=== PATIENT | female | born 1935 | race Caucasian/White ===

== ENCOUNTER 2017-10-29 23:02 | Emergency (ER) | payer MEDICARE, OTHER ==
[2017-10-29 23:34] VITALS: BP 151/102
[2017-10-30] MEDS ORDERED: Ondansetron 4 MG/2 ML SDV IVPUSH ONE (00:10)
[2017-10-30] MEDS ORDERED: Sodium Chloride 0.9% 10 ML Syringe FLUSH PRN (00:10)
[2017-10-30] MEDS ORDERED: Sodium Chloride 0.9% 1,000 ML IV SCH (00:15)
--- NOTE | 2017-10-30 02:36 | EDM.PDOC ---
ED HPI GENERAL MEDICAL PROBLEM - General Chief Complaint: Gastrointestinal Problem Stated Complaint: DIZZY SICK TO STOMACH Time Seen by Provider: 10/30/17 00:03 Source of Information: Reports: Patient History Limitations: Reports: No Limitations - History of Present Illness INITIAL COMMENTS - FREE TEXT/NARRATIVE: The patient was getting ready for bed and she developed dizziness where the room was spinning, nausea and vomiting. She took some nitro but it did not help. She feels uncomfortable but she denies fever, chills, cough, congestion, ear pain, decreased hearing, tinnitus, chest pain, shortness of breath, or abdominal pain. She has had vertigo before and she is wondering if that may be the case. She also has had some edema in her legs. She was told to stop her lasix but no she has edema in her legs. Onset: Sudden Duration: Minutes: Severity: Moderate Improves with: Reports: None Worsens with: Reports: None Associated Symptoms: Reports: Nausea/Vomiting. Denies: Confusion, Chest Pain, Cough, Fever/Chills, Headaches, Shortness of Breath Abdomen Pain Score (Numeric/FACES): 5 - Related Data Allergies Allergy/AdvReac Type Severity Reaction Status Date / Time No Known Allergies Allergy Verified 10/29/17 23:34 Home Meds: Home Meds Aspirin [Ecotrin] 81 mg PO DAILY 10/16/15 [History] Cyanocobalamin (Vitamin B12) [Vitamin B12] 1,000 mg PO DAILY 10/16/15 [History] Lisinopril [Zestril] 5 mg PO DAILY 10/16/15 [History] Metoprolol Tartrate 50 mg PO DAILY 10/16/15 [History] atorvaSTATin [Lipitor] 20 mg PO DAILY 10/16/15 [History] Cholecalciferol (Vitamin D3) [Vitamin D] 1,000 unit PO DAILY 01/28/16 [History] Rivaroxaban [Xarelto] 15 mg PO DAILY 11/04/16 [History] Furosemide [Lasix] 20 mg PO DAILY #30 tablet 10/30/17 [Rx] Meclizine [Antivert] 25 mg PO Q6H PRN #30 tablet 10/30/17 [Rx] Past Medical History HEENT History: Reports: Cataract Cardiovascular History: Reports: Hypertension, [place], Other (See Below) Other Cardiovascular History: plaque removal from carotid arteries Respiratory History: Reports: SOB Gastrointestinal History: Reports: GERD [employer] History: Reports: Musculoskeletal History: Reports: Arthritis Neurological History: Reports: Headaches, Chronic, Vertigo 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, Leukemia Dermatologic History: Reports: Eczema - Infectious Disease History Infectious Disease History: Reports: Shingles - Past Surgical History HEENT Surgical History: Reports: Tonsillectomy GI Surgical History: Reports: Appendectomy, Cholecystectomy, Colonoscopy, EGD Female Surgical History: Reports: Breast Biopsy, Hysterectomy, Mastectomy Social & Family History - Family History Oncologic: Reports: Breast - Tobacco Use Smoking Status *Q: Former Smoker Years of Tobacco use: 50 Packs/Tins Daily: 1 Used Tobacco, but Quit: Yes Month Tobacco Last Used: 2009 - Caffeine Use Caffeine Use: Reports: None - Recreational Drug Use Recreational Drug Use: No ED ROS GENERAL - Review of Systems Review Of Systems: See Below Constitutional: Reports: No Symptoms HEENT: Reports: No Symptoms Respiratory: Reports: No Symptoms Cardiovascular: Reports: No Symptoms Endocrine: Reports: No Symptoms GI/Abdominal: Reports: No Symptoms : Reports: No Symptoms Musculoskeletal: Reports: No Symptoms Skin: Reports: No Symptoms Neurological: Reports: Dizziness ED EXAM, GI/ABD - Physical Exam Exam: See Below Exam Limited By: No Limitations General Appearance: Alert, No Apparent Distress Eyes: Left: Nystagmus, Bilateral: EOMI Ears: Normal External Exam Nose: Normal Inspection Head: Atraumatic, Normocephalic Neck: Normal Inspection Respiratory/Chest: No Respiratory Distress, Lungs Clear, Normal Breath Sounds Cardiovascular: Regular Rate, Rhythm, No Edema, No Murmur GI/Abdominal Exam: Soft, Non-Tender, No Organomegaly, No Mass Back Exam: Normal Inspection Extremities: Normal Inspection EKG INTERPRETATION EKG Date: 10/30/17 Time: 00:28 Rhythm: Other (sinus tachycardia) Rate (Beats/Min): 104 [place]: Normal P-Wave: Present QRS: Normal ST-T: Normal QT: Prolonged Course - Vital Signs Last Recorded V/S: Last Vital Signs Temp 97.9 F 10/29/17 23:29 Pulse 104 H 10/29/17 23:29 Resp 18 10/29/17 23:29 BP 151/102 H 10/29/17 23:29 Pulse Ox 99 10/29/17 23:29 - Orders/Labs/Meds Orders: Active Orders 24 hr Category Date Time Status Cardiac Monitoring [RC] . DIRECTED Care 10/30/17 00:10 Active EKG Documentation Completion [RC] STAT Care 10/30/17 00:11 Active Peripheral IV Care [RC] . DIRECTED Care 10/30/17 00:11 Active Chest 1V Frontal [CR] Stat Exams 10/30/17 00:11 Taken Head wo Cont [CT] Stat Exams 10/30/17 00:27 Taken Sodium Chloride 0.9% [Normal Saline] 1,000 ml Med 10/30/17 00:15 Active IV ASDIRECTED Sodium Chloride 0.9% [Saline Flush] Med 10/30/17 00:10 Active 10 ml FLUSH ASDIRECTED PRN ED Antiemetic Medication Reflex [OM.PC] Stat Oth 10/30/17 00:10 Ordered Peripheral IV Insertion Adult [OM.PC] Stat Oth 10/30/17 00:10 Ordered Medication Orders Sodium Chloride (Normal Saline) 1,000 mls @ 125 mls/hr IV ASDIRECTED KATHERINE Last Admin: 10/30/17 00:43 Dose: 125 mls/hr Sodium Chloride (Saline Flush) 10 ml FLUSH ASDIRECTED PRN PRN Reason: Keep Vein Open Last Admin: 10/30/17 00:46 Dose: 10 ml Labs: Laboratory Tests 10/30/17 10/30/17 Range/Units 00:38 00:38 WBC 31.60 H (3.98-10.04) K/mm3 RBC 4.21 (3.98-5.22) M/mm3 Hgb 12.8 (11.2-15.7) gm/L Hct 40.1 (34.1-44.9) % MCV 95.2 H (79.4-94.8) fl MCH 30.4 (25.6-32.2) pg MCHC 31.9 L (32.2-35.5) g/dl RDW Std Deviation 47.9 H (36.4-46.3) fL Plt Count 178 L (182-369) K/mm3 MPV 9.9 (9.4-12.3) fl Neut % (Auto) 12.2 L (34.0-71.1) % Lymph % (Auto) 82.4 H (19.3-51.7) % [facility] % (Auto) 4.7 (4.7-12.5) % Eos % (Auto) 0.3 L (0.7-5.8) Baso % (Auto) 0.2 (0.1-1.2) % Neut # (Auto) 3.88 (1.56-6.13) K/mm3 Lymph # (Auto) 26.04 H (1.18-3.74) K/mm3 [facility] # (Auto) 1.47 H (0.24-0.36) K/mm3 Eos # (Auto) 0.09 (0.04-0.36) K/mm3 Baso # (Auto) 0.07 (0.01-0.08) K/mm3 Manual Slide Review Abnormal smear Sodium 139 (136-145) mEq/L Potassium 4.0 (3.5-5.1) mEq/L Chloride 101 (98-107) mEq/L Carbon Dioxide 28 (21-32) mEq/L Anion Gap 14.0 (5-15) BUN 14 (7-18) mg/dL Creatinine 0.8 (0.55-1.02) mg/dL Est Cr Clr Drug Dosing 45.02 mL/min Estimated GFR (MDRD) > 60 (>60) mL/min BUN/Creatinine Ratio 17.5 (14-18) Glucose 99 (83-115) mg/dL Calcium 9.1 (8.5-10.1) mg/dL Total Bilirubin 1.6 H (0.2-1.0) mg/dL AST 32 (15-37) U/L ALT 32 (14-59) U/L Alkaline Phosphatase 94 (46-116) U/L Troponin I < 0.017 (0.00-0.056) ng/mL NT-Pro-B Natriuret Pep 3900 H (0-450) pg/mL Total Protein 6.9 (6.4-8.2) g/dl Albumin 4.1 (3.4-5.0) g/dl Globulin 2.8 gm/dL Albumin/Globulin Ratio 1.5 (1-2) Meds: Medications Generic Name Dose Route Start Last Admin Trade Name Freq PRN Reason Stop Dose Admin Sodium Chloride 1,000 mls @ 125 mls/hr 10/30/17 00:15 10/30/17 00:43 Normal Saline IV 125 mls/hr ASDIRECTED KATHERINE Administration Sodium Chloride 10 ml 10/30/17 00:10 10/30/17 00:46 Saline Flush FLUSH 10 ml ASDIRECTED PRN Administration Keep Vein Open Discontinued Medications Generic Name Dose Route Start Last Admin Trade Name Dann PRN Reason Stop Dose Admin Meclizine HCl 25 mg 10/30/17 00:11 10/30/17 00:45 Antivert PO 10/30/17 00:12 25 mg ONETIME ONE Administration Ondansetron HCl 4 mg 10/30/17 00:10 10/30/17 00:45 Zofran IVPUSH 10/30/17 00:11 4 mg ONETIME ONE Administration - Re-Assessments/Exams Free Text/Narrative Re-Assessment/Exam: 10/30/17 02:36 I ordered an IV NS at 125mL/hr, antivert, EKG, labs, and CXR. Her EKG shows a sinus tachycardia. Her CXR shows COPD changes with some congestion. Her WBC was elevated at 31.6. She has leukemia. Her CMP looks good. Her troponin was negative. Her BNP was 3900. I feel she has vertigo and she has CHF. I will get her a prescription for antivert and I will have her take her lasix again. Departure - Departure Time of Disposition: 02:40 Disposition: Home, Self-Care 01 Condition: Good Clinical Impression: CHF (congestive heart failure) Qualifiers: Congestive heart failure type: unspecified congestive heart failure type Congestive heart failure chronicity: acute Qualified Code(s): I50.9 - Heart failure, unspecified - Discharge Information Prescriptions: Furosemide [Lasix] 20 mg PO DAILY #30 tablet Meclizine [Antivert] 25 mg PO Q6H PRN #30 tablet PRN Reason: Dizziness Referrals: Sarah Yap MD [Primary Care Provider] - 1 Week Additional Instructions: Continue to take the rest of your prescription. Take the antivert 1 pill every 6 hours as needed for dizziness. Take the lasix daily. Follow up with your doctor in 1 week. Please return if you are worse. - My Orders Last 24 Hours: My Active Orders 10/30/17 00:10 Cardiac Monitoring [RC] . DIRECTED Sodium Chloride 0.9% [Saline Flush] 10 ml FLUSH ASDIRECTED PRN ED Antiemetic Medication Reflex [OM.PC] Stat Peripheral IV Insertion Adult [OM.PC] Stat 10/30/17 00:11 EKG Documentation Completion [RC] STAT Peripheral IV Care [RC] . DIRECTED Chest 1V Frontal [CR] Stat 10/30/17 00:15 Sodium Chloride 0.9% [Normal Saline] 1,000 ml IV ASDIRECTED 10/30/17 00:27 Head wo Cont [CT] Stat - Assessment/Plan Last 24 Hours: My Active Orders 10/30/17 00:10 Cardiac Monitoring [RC] . DIRECTED Sodium Chloride 0.9% [Saline Flush] 10 ml FLUSH ASDIRECTED PRN ED Antiemetic Medication Reflex [OM.PC] Stat Peripheral IV Insertion Adult [OM.PC] Stat 10/30/17 00:11 EKG Documentation Completion [RC] STAT Peripheral IV Care [RC] . DIRECTED Chest 1V Frontal [CR] Stat 10/30/17 00:15 Sodium Chloride 0.9% [Normal Saline] 1,000 ml IV ASDIRECTED 10/30/17 00:27 Head wo Cont [CT] Stat
--- NOTE | 2017-10-30 08:24 | CT ---
Head CT Technique: Multiple axial sections through the brain were obtained. Intravenous contrast was not utilized. Comparison: Prior head CT study of 01/28/16 is available. Findings: Ventricles along with basal cisterns and sulci over the convexities are mildly prominent. Diminished density noted within the periventricular white matter and subcortical white matter as well as basal ganglia compatible with small vessel ischemic demyelination change. Several old appearing lacunar infarcts are noted within the basal ganglia. No other abnormal parenchymal densities are seen. No evidence of intracranial hemorrhage. No midline shift or mass effect is appreciated. Atherosclerotic calcification is seen within the carotid siphon. No acute calvarial abnormality is appreciated. Visualized sinuses are clear. Air is identified within portions of the cavernous sinuses which is likely incidental if patient has no history of trauma. Impression: 1. Senescent change as described above. Other incidental findings. 2. Nothing acute is appreciated on noncontrast head CT exam. Diagnostic code #2 I agree with preliminary report issued by [employer] ([facility] report finalized on 10/30/17, 2:45 AM Central Time)
--- NOTE | 2017-10-30 08:24 | CR ---
Chest: Portable view of the chest was obtained. Comparison: Prior chest x-ray of 11/04/16. Heart is enlarged. Slight atelectasis is noted within the right lung base. Lungs appear hyperinflated compatible with emphysematous change. Minimal right-sided pleural effusion is seen. Bony structures are osteopenic. Incidental scoliosis is noted within the spine. Impression: 1. Mild cardiomegaly. Minimal right-sided pleural effusion. 2. Mild right basilar atelectasis and other incidental findings. Diagnostic code #2
== END 2017-10-30 02:51 | disposition home or self-care (01) ==
LOC: JD.ED 23:02
DX: I11.0 Hypertensive heart disease with heart failure (principal); I50.9 Heart failure, unspecified; Z79.82 Long term (current) use of aspirin; Z79.899 Other long term (current) drug therapy; Z87.891 Personal history of nicotine dependence
CPT/HCPCS: 36415; 70450; 71010; 80053; 83880; 84484; 85025; 93005; 96361; 96374; 99285; A9270; J2405; J7040; J7050; 93010; 99284

== ENCOUNTER 2018-01-29 13:16 | Observation (INO) | payer MEDICARE, OTHER ==
[2018-01-29] MEDS ORDERED: Sodium Chloride 0.9% 10 ML Syringe FLUSH PRN ×2 (13:44→17:52)
--- NOTE | 2018-01-29 14:12 | CT ---
Head CT Technique: Multiple axial sections through the brain were obtained. Intravenous contrast was not utilized. Comparison: Prior noncontrast head CT study of 10/30/17. Findings: Ventricles along with basal cisterns and sulci over convexities are mildly prominent. Diminished density is noted within the periventricular white matter and within portions of the basal ganglia compatible with small vessel ischemic demyelination change. Several old lacunar infarcts are also noted within the basal ganglia. Old infarct is noted within the posterior right frontal region. No other abnormal parenchymal densities are seen. No evidence of intracranial hemorrhage. No midline shift or mass effect is seen. Bone window settings were reviewed which shows no acute calvarial abnormality. Visualized sinuses are clear. Impression: 1. Senescent change as noted above appearing fairly stable from prior head CT exam. 2. Nothing acute is appreciated on noncontrast head CT study. Diagnostic code #2
--- NOTE | 2018-01-29 14:27 | EDM.PDOC ---
ED HPI GENERAL MEDICAL PROBLEM - General Chief Complaint: Upper Extremity Injury/Pain Stated Complaint: NO FEELING IN R ARM Time Seen by Provider: 01/29/18 13:33 Source of Information: Reports: Patient History Limitations: Reports: No Limitations - History of Present Illness INITIAL COMMENTS - FREE TEXT/NARRATIVE: The patient presents with right arm numbness and weakness. This all started about 2 hours ago. She was at [facility] when this started. She said it did happen a couple days ago but it went away. This past week she had a cardiac cath in [place] in [place]. They went through her right wrist. She has ecchymosis to her arm. She has no pain and she has no edema. She says she has slight weakness to her right arm. She has no trouble walking or talking. She has no facial droop. She denies fever, chills, headache, chest pain, shortness of breath, abdominal pain, nausea or vomiting. Last time known well was 11:30 this morning. 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 - Related Data Allergies Allergy/AdvReac Type Severity Reaction Status Date / Time No Known Allergies Allergy Verified 01/29/18 13:30 Home Meds: Home Meds Aspirin [Ecotrin] 81 mg PO DAILY 10/16/15 [History] Cyanocobalamin (Vitamin B12) [Vitamin B12] 1,000 mg PO DAILY 10/16/15 [History] Lisinopril [Zestril] 2.5 mg PO DAILY 10/16/15 [History] Metoprolol Tartrate 75 mg PO DAILY 10/16/15 [History] atorvaSTATin [Lipitor] 20 mg PO DAILY 10/16/15 [History] Cholecalciferol (Vitamin D3) [Vitamin D] 1,000 unit PO DAILY 01/28/16 [History] Rivaroxaban [Xarelto] 15 mg PO DAILY 11/04/16 [History] Furosemide [Lasix] 20 mg PO DAILY #30 tablet 10/30/17 [Rx] Meclizine [Antivert] 25 mg PO Q6H PRN #30 tablet 10/30/17 [Rx] Fluticasone/Salmeterol [Advair 100-50] 1 puff INH ASDIRECTED PRN 01/29/18 [ History] Gabapentin [Neurontin] 100 mg PO BID 01/29/18 [History] Isosorbide Mononitrate [Imdur] 30 mg PO DAILY 01/29/18 [History] Nitroglycerin [Nitrostat] 0.4 mg SL ASDIRECTED PRN 01/29/18 [History] Past Medical History HEENT History: Reports: Cataract Cardiovascular History: Reports: Hypertension, [place], St[place], Other (See Below) Other Cardiovascular History: plaque removal from carotid arteries Respiratory History: Reports: SOB Gastrointestinal History: Reports: GERD [employer]IST History: Reports: Musculoskeletal History: Reports: Arthritis Neurological History: Reports: Headaches, Chronic, Vertigo 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, Leukemia Dermatologic History: Reports: Eczema - Infectious Disease History Infectious Disease History: Reports: Shingles - Past Surgical History HEENT Surgical History: Reports: Tonsillectomy GI Surgical History: Reports: Appendectomy, Cholecystectomy, Colonoscopy, EGD Female Surgical History: Reports: Breast Biopsy, Hysterectomy, Mastectomy Social & Family History - Family History Family Medical History: Noncontributory Oncologic: Reports: Breast - Tobacco Use Smoking Status *Q: Former Smoker Years of Tobacco use: 50 Packs/Tins Daily: 1 Used Tobacco, but Quit: No Month/Year Tobacco Last Used: 2009 - Caffeine Use Caffeine Use: Reports: None - Recreational Drug Use Recreational Drug Use: No Review of Systems - Review of Systems Review Of Systems: See Below Constitutional: Reports: No Symptoms Ears: Reports: No Symptoms Nose: Reports: No Symptoms Mouth/Throat: Reports: No Symptoms Respiratory: Reports: No Symptoms Cardiovascular: Reports: No Symptoms GI/Abdominal: Reports: No Symptoms Genitourinary: Reports: No Symptoms Musculoskeletal: Reports: No Symptoms Skin: Reports: No Symptoms Neurological: Reports: Numbness (right arm), Weakness (Right arm) ED EXAM, GENERAL - Physical Exam Exam: See Below Exam Limited By: No Limitations General Appearance: Alert, No Apparent Distress Ears: Normal External Exam Nose: Normal Inspection Head: Atraumatic, Normocephalic Neck: Normal Inspection Respiratory/Chest: No Respiratory Distress, Lungs Clear, Normal Breath Sounds Cardiovascular: Regular Rate, Rhythm, No Edema, No Murmur GI/Abdominal: Soft, Non-Tender, No Organomegaly, No Mass Back Exam: Normal Inspection Extremities: Normal Inspection Neurological: Alert, Other (Mild weakness to right arm. Gross numbness to right arm) EKG INTERPRETATION EKG Date: 01/29/18 Time: 13:29 Rhythm: NSR Rate (Beats/Min): 96 [place]on: Normal P-Wave: Present QRS: RBBB ST-T: Normal QT: Normal EKG Interpretation Comments: Q waves in the inferior leads Course - Vital Signs Last Recorded V/S: Last Vital Signs Temp 96.8 F 01/29/18 13:18 Pulse 97 01/29/18 13:18 Resp 20 01/29/18 13:18 BP 128/85 01/29/18 13:18 Pulse Ox 100 01/29/18 13:18 - Orders/Labs/Meds Orders: Active Orders 24 hr Category Date Time Status Cardiac Monitoring [RC] . DIRECTED Care 01/29/18 13:44 Active EKG Documentation Completion [RC] STAT Care 01/29/18 13:45 Active Peripheral IV Care [RC] . DIRECTED Care 01/29/18 13:45 Active Ang Head [CT] Stat Exams 01/29/18 17:26 Ordered Ang Neck [CT] Stat Exams 01/29/18 17:27 Ordered Sodium Chloride 0.9% [Normal Saline] 100 ml Med 01/29/18 18:00 Active IV ASDIRECTED Sodium Chloride 0.9% [Saline Flush] Med 01/29/18 13:44 Active 10 ml FLUSH ASDIRECTED PRN Sodium Chloride 0.9% [Saline Flush] Med 01/29/18 17:52 Active 10 ml FLUSH ONETIME PRN Peripheral IV Insertion Adult [OM.PC] Stat Oth 01/29/18 13:44 Ordered Medication Orders Sodium Chloride (Normal Saline) 100 mls @ 65 mls/hr IV ASDIRECTED KATHERINE Sodium Chloride (Saline Flush) 10 ml FLUSH ASDIRECTED PRN PRN Reason: Keep Vein Open Last Admin: 01/29/18 14:11 Dose: 10 ml Sodium Chloride (Saline Flush) 10 ml FLUSH ONETIME PRN PRN Reason: IV FLUSH Labs: Laboratory Tests 01/29/18 01/29/18 01/29/18 Range/Units 14:10 14:10 14:10 WBC 30.69 H (3.98-10.04) K/mm3 RBC 3.08 L (3.98-5.22) M/mm3 Hgb 8.6 L (11.2-15.7) gm/L Hct 28.2 L (34.1-44.9) % MCV 91.6 (79.4-94.8) fl MCH 27.9 (25.6-32.2) pg MCHC 30.5 L (32.2-35.5) g/dl RDW Std Deviation 51.2 H (36.4-46.3) fL Plt Count 268 (182-369) K/mm3 MPV 10.0 (9.4-12.3) fl Neut % (Auto) 12.2 L (34.0-71.1) % Lymph % (Auto) 81.4 H (19.3-51.7) % [place] % (Auto) 5.1 (4.7-12.5) % Eos % (Auto) 0.8 (0.7-5.8) Baso % (Auto) 0.3 (0.1-1.2) % Neut # (Auto) 3.75 (1.56-6.13) K/mm3 Lymph # (Auto) 24.97 H (1.18-3.74) K/mm3 [place] # (Auto) 1.56 H (0.24-0.36) K/mm3 Eos # (Auto) 0.26 (0.04-0.36) K/mm3 Baso # (Auto) 0.09 H (0.01-0.08) K/mm3 Manual Slide Review Abnormal smear PT 13.6 H (8.0-13.0) SECONDS INR 1.27 APTT 28 (22-36) SECONDS Sodium 139 (136-145) mEq/L Potassium 3.7 (3.5-5.1) mEq/L Chloride 101 (98-107) mEq/L Carbon Dioxide 28 (21-32) mEq/L Anion Gap 13.7 (5-15) BUN 25 H (7-18) mg/dL Creatinine 0.8 (0.55-1.02) mg/dL Est Cr Clr Drug Dosing 38.70 mL/min Estimated GFR (MDRD) > 60 (>60) mL/min BUN/Creatinine Ratio 31.3 H (14-18) Glucose 121 H (83-115) mg/dL Calcium 8.7 (8.5-10.1) mg/dL Total Bilirubin 0.7 (0.2-1.0) mg/dL AST 31 (15-37) U/L ALT 34 (14-59) U/L Alkaline Phosphatase 110 (46-116) U/L Troponin I 0.047 (0.00-0.056) ng/mL Total Protein 6.7 (6.4-8.2) g/dl Albumin 3.7 (3.4-5.0) g/dl Globulin 3.0 gm/dL Albumin/Globulin Ratio 1.2 (1-2) Meds: Medications Generic Name Dose Route Start Last Admin Trade Name Freq PRN Reason Stop Dose Admin Sodium Chloride 100 mls @ 65 mls/hr 01/29/18 18:00 Normal Saline IV ASDIRECTED KATHERINE Sodium Chloride 10 ml 01/29/18 13:44 01/29/18 14:11 Saline Flush FLUSH 10 ml ASDIRECTED PRN Administration Keep Vein Open Sodium Chloride 10 ml 01/29/18 17:52 Saline Flush FLUSH ONETIME PRN IV FLUSH Discontinued Medications Generic Name Dose Route Start Last Admin Trade Name Freq PRN Reason Stop Dose Admin Iopamidol 100 ml 01/29/18 17:52 [id number] (76%) IVPUSH 01/29/18 17:53 ONETIME ONE - Re-Assessments/Exams Free Text/Narrative Re-Assessment/Exam: 01/29/18 18:31 I ordered an IV saline lock, EKG, CT of her head and labs. 01/29/18 18:32 Her WBC is elevated at 30.69. Her Hgb is low. She has no real history of anemia. She does have a history of leukemia. Her platelets were normal. Her troponin was negative. Her CMP looks good. Her head CT shows senescent change appearing fairly stable from prior head CT exam. The patient's last time known well was 2 hours before arrival. She has totally resolved her symptoms. I talked to Dr Avila about the patient and she recommended an arterial US of her arm because of the cardiac cath. The US showed flow throughout the arterial system of the right upper extremity with no flow being seen on the diastolic phase indicating high resistance from poorly seen stenosis. No complete arterial obstruction is seen. 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 I talked with Dr Avila and she agreed to the observation admission. Departure - Departure Time of Disposition: 18:40 Disposition: Refer to Observation Condition: Fair Clinical Impression: TIA (transient ischemic attack) Qualifiers: Transient cerebral ischemia type: unspecified Qualified Code(s): G45.9 - Transient cerebral ischemic attack, unspecified Anemia Qualifiers: Anemia type: other cause Other causes of anemia: other cause, not classified Qualified Code(s): D64.89 - Other specified anemias - Discharge Information - My Orders Last 24 Hours: My Active Orders 01/29/18 13:44 Cardiac Monitoring [RC] . DIRECTED Sodium Chloride 0.9% [Saline Flush] 10 ml FLUSH ASDIRECTED PRN Peripheral IV Insertion Adult [OM.PC] Stat 01/29/18 13:45 EKG Documentation Completion [RC] STAT Peripheral IV Care [RC] . DIRECTED 01/29/18 17:26 Ang Head [CT] Stat 01/29/18 17:27 Ang Neck [CT] Stat 01/29/18 17:52 Sodium Chloride 0.9% [Saline Flush] 10 ml FLUSH ONETIME PRN 01/29/18 18:00 Sodium Chloride 0.9% [Normal Saline] 100 ml IV ASDIRECTED - Assessment/Plan Last 24 Hours: My Active Orders 01/29/18 13:44 Cardiac Monitoring [RC] . DIRECTED Sodium Chloride 0.9% [Saline Flush] 10 ml FLUSH ASDIRECTED PRN Peripheral IV Insertion Adult [OM.PC] Stat 01/29/18 13:45 EKG Documentation Completion [RC] STAT Peripheral IV Care [RC] . DIRECTED 01/29/18 17:26 Ang Head [CT] Stat 01/29/18 17:27 Ang Neck [CT] Stat 01/29/18 17:52 Sodium Chloride 0.9% [Saline Flush] 10 ml FLUSH ONETIME PRN 01/29/18 18:00 Sodium Chloride 0.9% [Normal Saline] 100 ml IV ASDIRECTED
--- NOTE | 2018-01-29 17:06 | US ---
Right upper extremity arterial ultrasound: Duplex and color flow imaging was obtained of the right common carotid artery, subclavian artery, axillary artery, brachial artery, radial and ulnar arteries. Findings: There is flow identified throughout the arterial system although flow shows increased resistance with no diastolic flow. Findings are felt compatible with areas of nonvisualized stenosis. No findings of of complete occlusion are seen. Impression: 1. Flow throughout the arterial system of the right upper extremity with no flow being seen on the diastolic phase indicating high resistance from poorly seen stenosis. No complete arterial obstruction is seen. Diagnostic code #3
[2018-01-29] MEDS ORDERED: Iopamidol 755 Mg/ML 100 ML Bottle IVPUSH ONE (17:52)
[2018-01-29] MEDS ORDERED: Sodium Chloride 0.9% 100 ML IV SCH (18:00)
--- NOTE | 2018-01-29 19:52 | PCM.HP ---
H&P History of Present Illness - General Date of Service: 01/29/18 Admit Problem/Dx: Admission Diagnosis/Problem Admission Diagnosis/Problem TIA, Transient ischemic attack Source of Information: Patient, Family, Provider History Limitations: Reports: No Limitations - History of Present Illness Initial Comments - Free Text/Narative: 82 year old female S/P right radial artery cardiac cath presented with a complaint of right arm numbness and weakness. The procedure occurred 1 week [employer]. The right forearm is bruised but not tender. Pulses are intact, there is no swelling or pallor. An arterial duplex could not exclude a poorly seen stenosis. Thus a complication post RA catheter can not be excluded. The patient has a history of PVD involving the carotid arteries. She reports CAD, however PCI was not required during the most recent evaluation. An observation admission with telemetry for complete assessment for TIA/cardiac cath post radial artery access has been arranged. The CTA of head/neck is pending. The ED physician discussed the plan with the neurologist missile control pilot in [facility]. Onset of Symptoms: Reports: Gradual Symptom Onset Date: 01/29/18 Duration of Symptoms: Reports: Hour(s):, Getting Worse Location: Reports: Upper Extremity, Right Quality: Reports: Other (numbness) Severity: Mild Improves with: Reports: Medication Worsens with: Reports: None Associated Symptoms: Reports: Weakness - Related Data Allergies/Adverse Reactions: Allergies Allergy/AdvReac Type Severity Reaction Status Date / Time No Known Allergies Allergy Verified 01/29/18 19:31 Home Medications: Home Meds Aspirin [Ecotrin] 81 mg PO DAILY 10/16/15 [History] Cyanocobalamin (Vitamin B12) [Vitamin B12] 1,000 mcg PO DAILY 10/16/15 [History] Lisinopril [Zestril] 2.5 mg PO DAILY 10/16/15 [History] atorvaSTATin [Lipitor] 40 mg PO DAILY 10/16/15 [History] Cholecalciferol (Vitamin D3) [Vitamin D] 1,000 unit PO DAILY 01/28/16 [History] Rivaroxaban [Xarelto] 15 mg PO DAILY 11/04/16 [History] Furosemide [Lasix] 20 mg PO DAILY #30 tablet 10/30/17 [Rx] Fluticasone/Salmeterol [Advair 100-50] 1 puff INH ASDIRECTED PRN 01/29/18 [ History] Gabapentin [Neurontin] 100 mg PO TID 01/29/18 [History] Isosorbide Mononitrate [Imdur] 30 mg PO DAILY 01/29/18 [History] Nitroglycerin [Nitrostat] 0.4 mg SL ASDIRECTED PRN 01/29/18 [History] Clopidogrel [Plavix] 1 tab PO DAILY 01/30/18 [History] Metoprolol Succinate 75 mg PO DAILY 01/30/18 [History] Past Medical History HEENT History: Reports: Cataract Cardiovascular History: Reports: Hypertension, [place], Stents, Other (See Below) Other Cardiovascular History: plaque removal from carotid arteries Respiratory History: Reports: SOB Gastrointestinal History: Reports: GERD 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: Musculoskeletal History: Reports: Arthritis Neurological History: Reports: Headaches, Chronic, Vertigo 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, Leukemia Dermatologic History: Reports: Eczema - Infectious Disease History Infectious Disease History: Reports: Shingles - Past Surgical History HEENT Surgical History: Reports: Tonsillectomy GI Surgical History: Reports: Appendectomy, Cholecystectomy, Colonoscopy, EGD Female Surgical History: Reports: Breast Biopsy, Hysterectomy, Mastectomy Social & Family History - Family History Family Medical History: Noncontributory Oncologic: Reports: Breast - Tobacco Use Smoking Status *Q: Former Smoker Years of Tobacco use: 50 Packs/Tins Daily: 1 Used Tobacco, but Quit: No Month/Year Tobacco Last Used: 2009 - Caffeine Use Caffeine Use: Reports: None - Recreational Drug Use Recreational Drug Use: No H&P Review of Systems - Review of Systems: Review Of Systems: See Below General: Reports: No Symptoms HEENT: Reports: No Symptoms Pulmonary: Reports: No Symptoms Cardiovascular: Reports: No Symptoms Gastrointestinal: Reports: No Symptoms Genitourinary: Reports: No Symptoms Musculoskeletal: Reports: Arm Pain (right), Hand Pain (right) Skin: Reports: Bruising Psychiatric: Reports: No Symptoms Neurological: Reports: No Symptoms Hematologic/Lymphatic: Reports: No Symptoms Immunologic: Reports: No Symptoms Exam - Exam Exam: See Below - Vital Signs Vital Signs: Last Vital Signs Temp 36.0 C 01/29/18 13:18 Pulse 97 01/29/18 13:18 Resp 20 01/29/18 13:18 BP 128/85 01/29/18 13:18 Pulse Ox 100 01/29/18 13:18 Weight: 45.178 kg - Exam Quality Assessment: Supplemental Oxygen, DVT Prophylaxis General: Alert, Oriented, Cooperative HEENT: Conjunctiva Clear, Nares Patent, Normal Nasal Septum, Pupils Equal, Pupils Reactive, PERRLA Neck: Trachea Midline Lungs: Normal Respiratory Effort Cardiovascular: Regular Rate, Irregular Rhythm GI/Abdominal Exam: Normal Bowel Sounds, Soft, Non-Tender, No Organomegaly, No Distention (Female) Exam: Deferred Rectal (Female) Exam: Deferred Back Exam: CVA Tenderness (R) Extremities: Normal Inspection, Normal Range of Motion, Non-Tender Skin: Warm, Dry, Ecchymosis Neurological: Cranial Nerves Intact Neuro Extensive - Mental Status: Alert, Oriented x3, Normal Mood/Affect, Normal Cognition, Disorientation to Time Neuro Extensive - Motor, Sensory, Reflexes: CN II-XII Intact Psychiatric: Alert, Normal Affect, Normal Mood - Patient Data Lab Results Last 24 hrs: Laboratory Results - last 24 hr 01/29/18 01/29/18 01/29/18 Range/Units 14:10 14:10 14:10 WBC 30.69 H (3.98-10.04) K/mm3 RBC 3.08 L (3.98-5.22) M/mm3 Hgb 8.6 L (11.2-15.7) gm/L Hct 28.2 L (34.1-44.9) % MCV 91.6 (79.4-94.8) fl MCH 27.9 (25.6-32.2) pg MCHC 30.5 L (32.2-35.5) g/dl RDW Std Deviation 51.2 H (36.4-46.3) fL Plt Count 268 (182-369) K/mm3 MPV 10.0 (9.4-12.3) fl Neut % (Auto) 12.2 L (34.0-71.1) % Lymph % (Auto) 81.4 H (19.3-51.7) % [place] % (Auto) 5.1 (4.7-12.5) % Eos % (Auto) 0.8 (0.7-5.8) Baso % (Auto) 0.3 (0.1-1.2) % Neut # (Auto) 3.75 (1.56-6.13) K/mm3 Lymph # (Auto) 24.97 H (1.18-3.74) K/mm3 [place] # (Auto) 1.56 H (0.24-0.36) K/mm3 Eos # (Auto) 0.26 (0.04-0.36) K/mm3 Baso # (Auto) 0.09 H (0.01-0.08) K/mm3 Manual Slide Review Abnormal smear PT 13.6 H (8.0-13.0) SECONDS INR 1.27 APTT 28 (22-36) SECONDS Sodium 139 (136-145) mEq/L Potassium 3.7 (3.5-5.1) mEq/L Chloride 101 (98-107) mEq/L Carbon Dioxide 28 (21-32) mEq/L Anion Gap 13.7 (5-15) BUN 25 H (7-18) mg/dL Creatinine 0.8 (0.55-1.02) mg/dL Est Cr Clr Drug Dosing 38.70 mL/min Estimated GFR (MDRD) > 60 (>60) mL/min BUN/Creatinine Ratio 31.3 H (14-18) Glucose 121 H (83-115) mg/dL Calcium 8.7 (8.5-10.1) mg/dL Total Bilirubin 0.7 (0.2-1.0) mg/dL AST 31 (15-37) U/L ALT 34 (14-59) U/L Alkaline Phosphatase 110 (46-116) U/L Troponin I 0.047 (0.00-0.056) ng/mL Total Protein 6.7 (6.4-8.2) g/dl Albumin 3.7 (3.4-5.0) g/dl Globulin 3.0 gm/dL Albumin/Globulin Ratio 1.2 (1-2) Result Diagrams: 01/30/18 10:00 01/30/18 05:39 Problem List Initiated/Reviewed/Updated: Yes Orders Last 24hrs: Active Orders 24 hr Category Date Time Status Patient Status [ADT] Routine ADT 01/29/18 18:22 Active Cardiac Monitoring [RC] . DIRECTED Care 01/29/18 13:44 Active EKG Documentation Completion [RC] STAT Care 01/29/18 13:45 Active Peripheral IV Care [RC] . DIRECTED Care 01/29/18 13:45 Active Ang Head [CT] Stat Exams 01/29/18 17:26 Taken Ang Neck [CT] Stat Exams 01/29/18 17:27 Taken Sodium Chloride 0.9% [Normal Saline] 100 ml Med 01/29/18 18:00 Active IV ASDIRECTED Sodium Chloride 0.9% [Saline Flush] Med 01/29/18 13:44 Active 10 ml FLUSH ASDIRECTED PRN Sodium Chloride 0.9% [Saline Flush] Med 01/29/18 17:52 Active 10 ml FLUSH ONETIME PRN Peripheral IV Insertion Adult [OM.PC] Stat Oth 01/29/18 13:44 Ordered Medication Orders Sodium Chloride (Normal Saline) 100 mls @ 65 mls/hr IV ASDIRECTED KATHERINE Last Admin: 01/29/18 18:54 Dose: 65 mls/hr Sodium Chloride (Saline Flush) 10 ml FLUSH ASDIRECTED PRN PRN Reason: Keep Vein Open Last Admin: 01/29/18 14:11 Dose: 10 ml Sodium Chloride (Saline Flush) 10 ml FLUSH ONETIME PRN PRN Reason: IV FLUSH Last Admin: 01/29/18 18:54 Dose: 10 ml Assessment/Plan Comment:: Impression: Query TIA post cardiac cath via right radial artery; mild asymmetrical weakness RUE hematoma, intact radial pulse CAD/[place] with reported history of PCI; cardiac cath < 7 days [employer]--> no PCI was required Hx of ELVIRA Former tobacco use, 50 pack year. Stopped 8 years ago Clarify elevated WBCs, will review chart. Anemia-->repeat Hgb, transfuse if <9.0 Plan: Neurovas eval BID Empiric Rocephin Infectious work up Daily labs Await radiology results re: TIA/CVA post radial artery cardiac cath Home meds CM/PT/OT DC 24-48 hours
[2018-01-29] MEDS ORDERED: Nitroglycerin 0.4 MG Tab.SL SL PRN (20:02)
[2018-01-29] MEDS ORDERED: cefTRIAXone 2 GM in Sodium Chloride 0.9% 100 ML IV SCH (21:30)
[2018-01-29] MEDS ORDERED: Rivaroxaban 10 MG Tab PO SCH (22:30)
[2018-01-29] MEDS: GABAPENTIN 100 MG PO SCH (22:44)
[2018-01-30] MEDS: Sodium Chloride 0.45% 1,000 ML IV SCH ×2 (00:06→10:20)
--- NOTE | 2018-01-30 07:09 | CT ---
CT neck Technique: Multiple axial sections through the neck were obtained during arterial phase of contrast. Multiple MIP images were obtained. Comparison: No previous carotid imaging. Findings: Focal plaque causing stenosis at the origin of the left external and internal carotid arteries. This appears more severe on the MIP images than on the source images and stenosis on the source images is felt to be less than 50%. Right carotid bulb appears unremarkable. Other portions of the common carotid arteries and internal carotid arteries show no stenosis. Vertebral arteries are patent throughout their length. Scattered atherosclerotic calcified plaque partially visualized within the aorta. Impression: 1. Focal stenosis within the left carotid bulb at the origin of the internal and external carotid arteries. As mentioned above, this appears more severe on the MIP images than on the source images. Source images have stenosis less severe than 50%. 2. No additional abnormality seen on CT angiogram of the neck. Diagnostic code #3 Agree with preliminary report issued by [facility] ([facility] preliminary report dictated on 01/29/18, 9:31 PM Central Time)
--- NOTE | 2018-01-30 07:09 | CT ---
CT angiogram of brain Technique: Multiple axial sections were obtained during the arterial phase of contrast administration through the brain. Reconstructed MIP images were obtained in multiple projections. Findings: Dominant left vertebral artery is seen as compared to the right side which is a normal variant. Basilar artery is patent. Normal flow into the posterior cerebral arteries are seen. Carotid siphons show no stenosis. Middle cerebral and anterior cerebral arteries appear within normal limits. No larger aneurysm is seen. No focal areas of stenosis or occlusion are seen. Impression: 1. No discrete abnormality is identified on CT study of the brain. Diagnostic code #1 Agree with preliminary report issued by [facility] ([facility] preliminary report dictated on 01/29/18, 9:34 PM Central Time)
[2018-01-30] MEDS ORDERED: ISOSORBIDE MONONITRATE 30 MG PO SCH (09:00)
[2018-01-30] MEDS ORDERED: Aspirin 81 MG Tab.EC PO SCH (09:00)
[2018-01-30] MEDS ORDERED: LISINOPRIL 2.5 MG PO SCH (09:00)
[2018-01-30] MEDS ORDERED: Metoprolol Tartrate 25 MG Tab PO SCH (09:00)
[2018-01-30] MEDS ORDERED: Furosemide 20 MG Tab PO SCH (09:00)
[2018-01-30] MEDS ORDERED: Non-Formulary Medication 1 Each (Atorvastatin 20 MG) PO SCH (09:00)
[2018-01-30] MEDS ORDERED: Sodium Chloride 0.9% 250 ML IV SCH (09:30)
[2018-01-30] MEDS ORDERED: RIVAROXABAN 15 MG PO SCH (09:47)
[2018-01-30] MEDS: GABAPENTIN 100 MG PO SCH (10:08)
[2018-01-30] MEDS ORDERED: METOPROLOL SUCCINATE 50 MG PO SCH (10:15)
--- NOTE | 2018-01-30 10:31 | CR ---
Chest: Two views of the chest were obtained. Comparison: Prior chest x-ray of 10/30/17. Heart is slightly enlarged. Tortuous thoracic aorta is seen. Lungs are clear. Bony structures shows mild scoliosis within the spine. Osteopenia is also present. Coronary artery stent is seen. Impression: 1. Incidental findings. Nothing acute is appreciated on this two-view chest x-ray. Diagnostic code #2
--- NOTE | 2018-01-30 11:10 | PCM.DCSUM1 ---
Discharge Summary - Hospital Course Free Text/Narrative:: 2 year old female S/P right radial artery cardiac cath presented with a complaint of right arm numbness and weakness. The procedure occurred 1 week [employer]. The right forearm is bruised but not tender. Pulses are intact, there is no swelling or pallor. An arterial duplex could not exclude a poorly seen stenosis. Thus a complication post RA catheter can not be excluded. The patient has a history of PVD involving the carotid arteries. She reports CAD, however PCI was not required during the most recent evaluation. An observation admission with telemetry for complete assessment for TIA/cardiac cath post radial artery access has been arranged. The CTA of head/neck is pending. The ED physician discussed the plan with the neurologist business integration manager in [facility]. - Discharge Data Discharge Date: 01/30/18 Discharge Disposition: Home, Self-Care 01 Condition: Good - Patient Summary/Data Consults: Consultations 01/30/18 09:44 Consult to Occupational Therapy [OT Evaluation and Treatment] [CONS] Routine Consult to Physical Therapy [PT Evaluation and Treatment] [CONS] Routine - Patient Instructions Diet: Heart Healthy Diet Activity: As Tolerated Driving: May Drive Today Showering/Bathing: May Shower Notify Provider of: Fever, Increased Pain, Nausea and/or Vomiting - Discharge Plan Prescriptions/Med Rec: Isosorbide Mononitrate [Imdur] 60 mg PO DAILY #30 tab.er Home Medications: Home Meds Aspirin [Ecotrin] 81 mg PO DAILY 10/16/15 [History] Cyanocobalamin (Vitamin B12) [Vitamin B12] 1,000 mcg PO DAILY 10/16/15 [History] Lisinopril [Zestril] 2.5 mg PO DAILY 10/16/15 [History] atorvaSTATin [Lipitor] 40 mg PO DAILY 10/16/15 [History] Cholecalciferol (Vitamin D3) [Vitamin D3] 1,000 unit PO DAILY 01/28/16 [History] Rivaroxaban [Xarelto] 15 mg PO DAILY 11/04/16 [History] Furosemide [Lasix] 20 mg PO DAILY #30 tablet 10/30/17 [Rx] Fluticasone/Salmeterol [Advair 100-50] 1 puff INH ASDIRECTED PRN 01/29/18 [ History] Gabapentin [Neurontin] 100 mg PO TID 01/29/18 [History] Nitroglycerin [Nitrostat] 0.4 mg SL ASDIRECTED PRN 01/29/18 [History] Clopidogrel [Plavix] 1 tab PO DAILY 01/30/18 [History] Isosorbide Mononitrate [Imdur] 60 mg PO DAILY #30 tab.er 01/30/18 [Rx] Metoprolol Succinate 75 mg PO DAILY 01/30/18 [History] Forms: ED Department Discharge Referrals: Sarah Yap MD [Primary Care Provider] - 02/01/18 10:00 am (Ask your doctor about having a TDaP vaccine.) - Discharge Summary/Plan Comment DC Time >30 min.: No Discharge Summary/Plan Comment: Impression: Query TIA post cardiac cath via right radial artery; mild asymmetrical weakness ; neurovascular exam, stable CVA/TIA negative evaluation RUE hematoma, intact radial pulse, stable CAD/TN with reported history of PCI; cardiac cath < 7 days [employer]--> no PCI was required Hx of ELVIRA Former tobacco use, 50 pack year. Stopped 8 years ago Clarify elevated WBCs, will review chart-->history of leukemia=stable; no infection. Anemia-->repeat Hgb, transfuse if <9.0; repeat Hgb after 2 units PRBCs>11. Plan: Neurovas eval BID Empiric Rocephin Infectious work up Daily labs Await radiology results re: TIA/CVA post radial artery cardiac cath Home meds CM/PT/OT DC home, see med list; follow up as previously scheduled. Imdur was increased to 60 mg daily. - General Info Date of Service: 01/29/18 Functional Status: Reports: Tolerating Diet, Ambulating, Urinating - Review of Systems General: Reports: No Symptoms HEENT: Reports: No Symptoms Pulmonary: Reports: No Symptoms Cardiovascular: Reports: No Symptoms Gastrointestinal: Reports: No Symptoms Genitourinary: Reports: No Symptoms Musculoskeletal: Reports: No Symptoms Skin: Reports: No Symptoms Neurological: Reports: No Symptoms Psychiatric: Reports: No Symptoms - Patient Data Vitals - Most Recent: Last Vital Signs Temp 37.2 C 01/30/18 04:23 Pulse 97 01/30/18 10:22 Resp 18 01/30/18 04:23 BP 122/66 01/30/18 10:22 Pulse Ox 98 01/30/18 04:23 Weight - Most Recent: 44.679 kg I&O - Last 24 hours: Intake & Output 01/29/18 01/30/18 01/30/18 22:59 06:59 14:59 Intake Total 721 180 Output Total 1100 Balance -379 180 Lab Results - Last 24 hrs: Laboratory Results - last 24 hr 01/29/18 01/29/18 01/29/18 Range/Units 14:10 14:10 14:10 WBC 30.69 H (3.98-10.04) K/mm3 RBC 3.08 L (3.98-5.22) M/mm3 Hgb 8.6 L (11.2-15.7) gm/L Hct 28.2 L (34.1-44.9) % MCV 91.6 (79.4-94.8) fl MCH 27.9 (25.6-32.2) pg MCHC 30.5 L (32.2-35.5) g/dl RDW Std Deviation 51.2 H (36.4-46.3) fL Plt Count 268 (182-369) K/mm3 MPV 10.0 (9.4-12.3) fl Neut % (Auto) 12.2 L (34.0-71.1) % Lymph % (Auto) 81.4 H (19.3-51.7) % [place] % (Auto) 5.1 (4.7-12.5) % Eos % (Auto) 0.8 (0.7-5.8) Baso % (Auto) 0.3 (0.1-1.2) % Neut # (Auto) 3.75 (1.56-6.13) K/mm3 Lymph # (Auto) 24.97 H (1.18-3.74) K/mm3 [place] # (Auto) 1.56 H (0.24-0.36) K/mm3 Eos # (Auto) 0.26 (0.04-0.36) K/mm3 Baso # (Auto) 0.09 H (0.01-0.08) K/mm3 Manual Slide Review Abnormal smear PT 13.6 H (8.0-13.0) SECONDS INR 1.27 APTT 28 (22-36) SECONDS Sodium 139 (136-145) mEq/L Potassium 3.7 (3.5-5.1) mEq/L Chloride 101 (98-107) mEq/L Carbon Dioxide 28 (21-32) mEq/L Anion Gap 13.7 (5-15) BUN 25 H (7-18) mg/dL Creatinine 0.8 (0.55-1.02) mg/dL Est Cr Clr Drug Dosing 38.70 mL/min Estimated GFR (MDRD) > 60 (>60) mL/min BUN/Creatinine Ratio 31.3 H (14-18) Glucose 121 H (83-115) mg/dL Lactic Acid (0.4-2.0) mmol/L Calcium 8.7 (8.5-10.1) mg/dL Total Bilirubin 0.7 (0.2-1.0) mg/dL AST 31 (15-37) U/L ALT 34 (14-59) U/L Alkaline Phosphatase 110 (46-116) U/L Troponin I 0.047 (0.00-0.056) ng/mL C-Reactive Protein (<1.0) mg/dL Total Protein 6.7 (6.4-8.2) g/dl Albumin 3.7 (3.4-5.0) g/dl Globulin 3.0 gm/dL Albumin/Globulin Ratio 1.2 (1-2) Urine Color (Yellow) Urine Appearance (Clear) Urine pH (5.0-8.0) Ur Specific [place] (1.005-1.030) Urine Protein (Negative) Urine Glucose (UA) (Negative) Urine Ketones (Negative) Urine Occult Blood (Negative) Urine Nitrite (Negative) Urine Bilirubin (Negative) Urine Urobilinogen (0.2-1.0) Ur Leukocyte Esterase (Negative) Urine RBC (0-5) /hpf Urine WBC (0-5) /hpf Ur Epithelial Cells (0-5) /hpf Urine Bacteria (FEW) /hpf Urine Mucus (FEW) /hpf 01/29/18 01/30/18 01/30/18 Range/Units 21:38 05:39 05:39 WBC 25.99 H (3.98-10.04) K/mm3 RBC 2.68 L (3.98-5.22) M/mm3 Hgb 7.7 L (11.2-15.7) gm/L Hct 24.6 L (34.1-44.9) % MCV 91.8 (79.4-94.8) fl MCH 28.7 (25.6-32.2) pg MCHC 31.3 L (32.2-35.5) g/dl RDW Std Deviation 50.7 H (36.4-46.3) fL Plt Count 218 (182-369) K/mm3 MPV 9.8 (9.4-12.3) fl Neut % (Auto) 9.8 L (34.0-71.1) % Lymph % (Auto) 85.6 H (19.3-51.7) % [place] % (Auto) 3.3 L (4.7-12.5) % Eos % (Auto) 1.1 (0.7-5.8) Baso % (Auto) 0.2 (0.1-1.2) % Neut # (Auto) 2.56 (1.56-6.13) K/mm3 Lymph # (Auto) 22.24 H (1.18-3.74) K/mm3 [place] # (Auto) 0.86 H (0.24-0.36) K/mm3 Eos # (Auto) 0.28 (0.04-0.36) K/mm3 Baso # (Auto) 0.05 (0.01-0.08) K/mm3 Manual Slide Review Abnormal smear PT (8.0-13.0) SECONDS INR APTT (22-36) SECONDS Sodium 139 (136-145) mEq/L Potassium 4.1 (3.5-5.1) mEq/L Chloride 105 (98-107) mEq/L Carbon Dioxide 28 (21-32) mEq/L Anion Gap 10.1 (5-15) BUN 20 H (7-18) mg/dL Creatinine 0.8 (0.55-1.02) mg/dL Est Cr Clr Drug Dosing 39.33 mL/min Estimated GFR (MDRD) > 60 (>60) mL/min BUN/Creatinine Ratio 25.0 H (14-18) Glucose 92 (83-115) mg/dL Lactic Acid (0.4-2.0) mmol/L Calcium 8.1 L (8.5-10.1) mg/dL Total Bilirubin (0.2-1.0) mg/dL AST (15-37) U/L ALT (14-59) U/L Alkaline Phosphatase (46-116) U/L Troponin I (0.00-0.056) ng/mL C-Reactive Protein < 0.2 (<1.0) mg/dL Total Protein (6.4-8.2) g/dl Albumin (3.4-5.0) g/dl Globulin gm/dL Albumin/Globulin Ratio (1-2) Urine Color Yellow (Yellow) Urine Appearance Clear (Clear) Urine pH 6.0 (5.0-8.0) Ur Specific [place] 1.015 (1.005-1.030) Urine Protein Negative (Negative) Urine Glucose (UA) Negative (Negative) Urine Ketones Negative (Negative) Urine Occult Blood 1+ H (Negative) Urine Nitrite Negative (Negative) Urine Bilirubin Negative (Negative) Urine Urobilinogen 1.0 (0.2-1.0) Ur Leukocyte Esterase Negative (Negative) Urine RBC 0-5 (0-5) /hpf Urine WBC 0-5 (0-5) /hpf Ur Epithelial Cells 0-5 (0-5) /hpf Urine Bacteria Few (FEW) /hpf Urine Mucus Not seen (FEW) /hpf 01/30/18 01/30/18 Range/Units 05:39 10:00 WBC (3.98-10.04) K/mm3 RBC (3.98-5.22) M/mm3 Hgb 8.2 L (11.2-15.7) gm/L Hct (34.1-44.9) % MCV (79.4-94.8) fl MCH (25.6-32.2) pg MCHC (32.2-35.5) g/dl RDW Std Deviation (36.4-46.3) fL Plt Count (182-369) K/mm3 MPV (9.4-12.3) fl Neut % (Auto) (34.0-71.1) % Lymph % (Auto) (19.3-51.7) % [place] % (Auto) (4.7-12.5) % Eos % (Auto) (0.7-5.8) Baso % (Auto) (0.1-1.2) % Neut # (Auto) (1.56-6.13) K/mm3 Lymph # (Auto) (1.18-3.74) K/mm3 [place] # (Auto) (0.24-0.36) K/mm3 Eos # (Auto) (0.04-0.36) K/mm3 Baso # (Auto) (0.01-0.08) K/mm3 Manual Slide Review PT (8.0-13.0) SECONDS INR APTT (22-36) SECONDS Sodium (136-145) mEq/L Potassium (3.5-5.1) mEq/L Chloride (98-107) mEq/L Carbon Dioxide (21-32) mEq/L Anion Gap (5-15) BUN (7-18) mg/dL Creatinine (0.55-1.02) mg/dL Est Cr Clr Drug Dosing mL/min Estimated GFR (MDRD) (>60) mL/min BUN/Creatinine Ratio (14-18) Glucose (83-115) mg/dL Lactic Acid 0.8 (0.4-2.0) mmol/L Calcium (8.5-10.1) mg/dL Total Bilirubin (0.2-1.0) mg/dL AST (15-37) U/L ALT (14-59) U/L Alkaline Phosphatase (46-116) U/L Troponin I (0.00-0.056) ng/mL C-Reactive Protein (<1.0) mg/dL Total Protein (6.4-8.2) g/dl Albumin (3.4-5.0) g/dl Globulin gm/dL Albumin/Globulin Ratio (1-2) Urine Color (Yellow) Urine Appearance (Clear) Urine pH (5.0-8.0) Ur Specific [place] (1.005-1.030) Urine Protein (Negative) Urine Glucose (UA) (Negative) Urine Ketones (Negative) Urine Occult Blood (Negative) Urine Nitrite (Negative) Urine Bilirubin (Negative) Urine Urobilinogen (0.2-1.0) Ur Leukocyte Esterase (Negative) Urine RBC (0-5) /hpf Urine WBC (0-5) /hpf Ur Epithelial Cells (0-5) /hpf Urine Bacteria (FEW) /hpf Urine Mucus (FEW) /hpf [facility] Results - Last 24 hrs: Microbiology 01/29/18 21:38 Influenza Type A Antigen Screen - Final Nasopharyngeal Swab NEGATIVE INFLUENZA A VIRUS AG Influenza Type B Antigen Screen - Final NEGATIVE INFLUENZA B VIRUS AG Med Orders - Current: Current Medications Aspirin (Halfprin) 81 mg PO DAILY [facility] Last Admin: 01/30/18 10:08 Dose: 81 mg Furosemide (Lasix) 20 mg PO DAILY [facility] Last Admin: 01/30/18 10:10 Dose: 20 mg Furosemide (Lasix) 40 mg IVPUSH NOW ONE Stop: 01/30/18 13:31 Gabapentin (Neurontin) 100 mg PO BID [facility] Last Admin: 01/30/18 10:08 Dose: 100 mg Sodium Chloride (Sodium Chloride 0.45%) 1,000 mls @ 100 mls/hr IV ASDIRECTED [facility] Last Admin: 01/30/18 10:20 Dose: 100 mls/hr Sodium Chloride (Normal Saline) 250 mls @ 100 mls/hr IV ASDIRECTED [facility] Isosorbide Mononitrate (Imdur) 30 mg PO DAILY [facility] Last Admin: 01/30/18 10:21 Dose: 30 mg Lisinopril (Prinivil) 2.5 mg PO DAILY [facility] Last Admin: 01/30/18 10:22 Dose: 2.5 mg Meclizine HCl (Antivert) 25 mg PO Q6H PRN PRN Reason: Dizziness Last Admin: 01/29/18 22:44 Dose: 25 mg Metoprolol Succinate (Toprol Xl) 75 mg PO DAILY [facility] Last Admin: 01/30/18 10:22 Dose: 75 mg Nitroglycerin (Nitrostat) 0.4 mg SL ASDIRECTED PRN PRN Reason: Chest Pain Atorvastatin 40 Mg 0 each PO BEDTIME [facility]) [facility] Sodium Chloride (Saline Flush) 10 ml FLUSH ASDIRECTED PRN PRN Reason: Keep Vein Open Last Admin: 01/29/18 14:11 Dose: 10 ml Sodium Chloride (Saline Flush) 10 ml FLUSH ONETIME PRN PRN Reason: IV FLUSH Last Admin: 01/29/18 18:54 Dose: 10 ml Discontinued Medications Sodium Chloride (Normal Saline) 100 mls @ 65 mls/hr IV ASDIRECTED [facility] Last Admin: 01/29/18 18:54 Dose: 65 mls/hr Ceftriaxone Sodium 2 gm/ (Sodium Chloride) 100 mls @ 100 mls/hr IV Q24H [facility] Last Admin: 01/29/18 21:58 Dose: 100 mls/hr Iopamidol (Isovue-370 (76%)) 100 ml IVPUSH ONETIME ONE Stop: 01/29/18 17:53 Last Admin: 01/29/18 18:54 Dose: 100 ml Metoprolol Tartrate (Lopressor) 75 mg PO DAILY [facility] Rivaroxaban (Xarelto) 15 mg PO WITHDINNER [facility] Last Admin: 01/29/18 22:44 Dose: 15 mg - Exam Quality Assessment: Reports: DVT Prophylaxis General: Reports: Alert, Oriented, Cooperative, No Acute Distress HEENT: Reports: Pupils Equal, Pupils Reactive, EOMI Neck: Reports: Supple, Trachea Midline, No JVD Lungs: Reports: Normal Respiratory Effort Cardiovascular: Reports: Regular Rate, Regular Rhythm GI/Abdominal Exam: Normal Bowel Sounds, Soft, Non-Tender, No Organomegaly, No Distention (Female) Exam: Deferred Rectal (Female) Exam: Deferred Back Exam: Reports: Normal Inspection Extremities: Normal Inspection, Normal Range of Motion, Non-Tender, No Pedal Edema Skin: Reports: Warm, Dry, Intact, Ecchymosis Neurological: Reports: No New Focal Deficit, Normal Gait, Normal Speech Psy/Mental Status: Reports: Alert, Normal Affect, Normal Mood
[2018-01-30] MEDS ORDERED: FLUTICASONE INH PRN (12:54)
[2018-01-30] MEDS ORDERED: SALMETEROL INH PRN (12:54)
[2018-01-30] MEDS ORDERED: Furosemide 40 MG/4 ML VIAL IVPUSH ONE (13:30)
[2018-01-30 18:12] VITALS: BP 104/63
[2018-01-30] MEDS ORDERED: ATORVASTATIN 40 MG PO SCH (21:00)
[2018-01-31] MEDS ORDERED: Isosorbide Mononitrate 60 MG Tab.ER PO SCH (09:00)
[2018-01-31] MEDS ORDERED: ISOSORBIDE MONONITRATE 30 MG PO SCH (09:00)
[2018-01-31] MEDS ORDERED: Metoprolol Succinate 50 MG Tab.ER PO SCH (09:00)
== END 2018-01-30 19:50 | disposition home or self-care (01) ==
LOC: JD.ED 13:16 → JD.MS 18:22
PROVIDERS: ADMIT Internal Medicine Cardiovascular Disease; ATTEND Internal Medicine Cardiovascular Disease
DX: I97.630 Postprocedural hematoma of a circulatory system organ or structure following a cardiac catheterization (principal); I25.10 Atherosclerotic heart disease of native coronary artery without angina pectoris; I25.2 Old myocardial infarction; D64.9 Anemia, unspecified; I10 Essential (primary) hypertension; K21.9 Gastro-esophageal reflux disease without esophagitis; Z90.89 Acquired absence of other organs; Z79.82 Long term (current) use of aspirin; Z79.899 Other long term (current) drug therapy; Z79.01 Long term (current) use of anticoagulants; Z95.5 Presence of coronary angioplasty implant and graft; Z87.891 Personal history of nicotine dependence; Z90.49 Acquired absence of other specified parts of digestive tract; Z90.710 Acquired absence of both cervix and uterus
CPT/HCPCS: 36415; 36430; 70450; 70496; 70498; 71046; 80048; 80053; 81001; 83605; 84484; 85018; 85025; 85610; 85730; 86140; 86850; 86900; 86901; 86922; 87804; 93005; 93931; 96361; 96365; 97161; 97165; 99285; A9270; G0378; J0696; J1940; J7030; J7050; P9016; Q9967; 93010; 99217; 99219

== ENCOUNTER 2019-07-16 11:49 | Emergency (ER) | payer MEDICARE, OTHER ==
[2019-07-16 11:59] VITALS: BP 118/92; PULSE 92
[2019-07-16] MEDS ORDERED: Aspirin 81 MG Tab.Chew PO ONE (12:13)
[2019-07-16] MEDS ORDERED: Sodium Chloride 0.9% 10 ML Syringe FLUSH PRN (12:13)
[2019-07-16] MEDS ORDERED: Ondansetron 4 MG/2 ML SDV IVPUSH ONE (12:15)
[2019-07-16] MEDS ORDERED: HYDROmorphone 0.5 MG/0.5 ML Syringe IVPUSH ONE (12:23)
--- NOTE | 2019-07-16 12:29 | EDM.PDOC ---
ED HPI GENERAL MEDICAL PROBLEM - General Chief Complaint: Chest Pain Stated Complaint: DIZZY,CHEST PAIN, SOB Time Seen by Provider: 07/16/19 12:05 Source of Information: Reports: Patient History Limitations: Reports: No Limitations - History of Present Illness INITIAL COMMENTS - FREE TEXT/NARRATIVE: 83-year-old female presents for evaluation and treatment of chest pain and shortness of breath. Patient reports that she did not feel well yesterday. Pain started this morning. Currently rates the pain as a 6 out of 10. She describes as a squeezing sensation states that she is very uncomfortable. Reports pain in the anterior chest and her upper back. She reports associated symptoms of shortness of breath, dizziness and vomiting. She states she vomited a few times today. She denies any abdominal pain or any syncope. She states that she has not have much of an appetite and has only had a few things to eat. Patients past cardiac history is remarkable for [place] 2. She also had pacemaker placement with lead misplacement causing cardiac And on. She required a pericardial window for management of this. Patient also has a history of CVA 2. and CLL. Primary care provider is Dr. Yap. Commercial Review Appraiser is Dr. Zaragoza. Patient reports that they've increased her potassium recently. Chest Pain Score (Numeric/FACES): 6 - Related Data Allergies Allergy/AdvReac Type Severity Reaction Status Date / Time diatrizoate meglumine AdvReac Nausea and Verified 07/16/19 11:59 [From Gastrografin] Vomiting diatrizoate sodium AdvReac Nausea and Verified 07/16/19 11:59 [From Gastrografin] Vomiting Home Meds: Home Meds Aspirin [Ecotrin EC] 81 mg PO DAILY 10/16/15 [History] atorvaSTATin [Lipitor] 40 mg PO DAILY 10/16/15 [History] Cholecalciferol (Vitamin D3) [Vitamin D3] 1,000 unit PO DAILY 01/28/16 [History] Clopidogrel [Plavix] 1 tab PO DAILY 01/30/18 [History] Isosorbide Mononitrate [Imdur] 60 mg PO DAILY #30 tab.er 01/30/18 [Rx] Metoprolol Succinate 100 mg PO BID 01/30/18 [History] Furosemide [Lasix] 80 mg PO DAILY 05/20/19 [History] Multivitamin with Minerals [Multiple Vitamin] 1 tab PO DAILY 05/20/19 [History] Pantoprazole Sodium [Protonix] 40 mg PO ASDIRECTED 05/20/19 [History] Potassium Chloride 20 meq PO DAILY 05/20/19 [History] Past Medical History HEENT History: Reports: Cataract Cardiovascular History: Reports: Hypertension, [place], Pacemaker, Stents, Other ( See Below) Other Cardiovascular History: plaque removal from carotid arteries Respiratory History: Reports: SOB Gastrointestinal History: Reports: GERD HOTEL GENERAL MANAGER History: Reports: Other HOTEL GENERAL MANAGER History: 3 weeks ago- vaginal pain, irritation 3 weeks, has ointment she has been putting on. Musculoskeletal History: Reports: Arthritis Neurological History: Reports: Headaches, Chronic, Vertigo Other Neuro History: x2 CVA; Raynauds Syndrome Psychiatric History: Reports: None Endocrine/Metabolic History: Reports: None Hematologic History: Reports: None Other Hematologic History: Chronic lymphocytic Leukemia-Dx 2003 Immunologic History: Reports: None 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, Leukemia Other Oncologic History: Chronic lymphocytic leukemia under control since 2003. Breast cysts not true cancer Dermatologic History: Reports: Eczema - Infectious Disease History Infectious Disease History: Reports: Shingles - Past Surgical History Head Surgeries/Procedures: Reports: None HEENT Surgical History: Reports: Tonsillectomy GI Surgical History: Reports: Appendectomy, Cholecystectomy, Colonoscopy, EGD Female Surgical History: Reports: Breast Biopsy, Hysterectomy, Mastectomy Social & Family History - Family History Family Medical History: Noncontributory Oncologic: Reports: Breast - Tobacco Use Smoking Status *Q: Former Smoker Used Tobacco, but Quit: Yes Month/Year Tobacco Last Used: 2008 - Caffeine Use Caffeine Use: Reports: Coffee - Recreational Drug Use Recreational Drug Use: No - Living Situation & Occupation Living situation: Reports: Occupation: Retired ED ROS GENERAL - Review of Systems Review Of Systems: See Below Constitutional: Reports: Malaise Respiratory: Reports: Shortness of Breath Cardiovascular: Reports: Chest Pain. Denies: Edema, Syncope GI/Abdominal: Reports: Nausea, Vomiting. Denies: Abdominal Pain Musculoskeletal: Reports: Back Pain Neurological: Reports: Dizziness. Denies: Syncope ED EXAM, GENERAL - Physical Exam Exam: See Below Exam Limited By: No Limitations General Appearance: Alert, WD/WN, No Apparent Distress, Thin Eye Exam: Bilateral Eye: Normal Inspection Respiratory/Chest: No Respiratory Distress, Lungs Clear, Normal Breath Sounds Cardiovascular: No Murmur, Irregularly Irregular GI/Abdominal: Soft, Non-Tender Neurological: Alert, Oriented, Normal Cognition Psychiatric: Normal Affect, Normal Mood Skin Exam: Warm, Dry, Normal Color EKG INTERPRETATION EKG Date: 07/16/19 EKG Interpretation Comments: Inital EKG at 11:59 shows atrial fibrillation, right bundle branch block. Q waves to 3 aVF, inferior old NJ. No obvious ischemic changes. Reviewed by myself and Dr. Castillo. EKG done at 1528. She is a ventricular paced complexes. Right bundle branch block. Q waves to 3 aVF. No obvious ischemic changes. Reviewed by myself and Rc Castillo. EKGs show no significant change from May, ekg. Course - Vital Signs Last Recorded V/S: Last Vital Signs Temp 98.5 F 07/16/19 11:55 Pulse 92 07/16/19 11:55 Resp 18 07/16/19 11:55 BP 118/92 H 07/16/19 11:55 Pulse Ox 99 07/16/19 11:55 - Orders/Labs/Meds Orders: Active Orders 24 hr Category Date Time Status Cardiac Monitoring [RC] . DIRECTED Care 07/16/19 12:13 Active EKG 12 Lead [EKG Documentation Completion] [RC] STAT Care 07/16/19 15:23 Active EKG Documentation Completion [RC] ASDIRECTED Care 07/16/19 12:14 Active Peripheral IV Care [RC] . DIRECTED Care 07/16/19 12:14 Active Chest 1V Frontal [CR] Stat Exams 07/16/19 12:21 Taken Heparin Sodium/D5W [Heparin 25,000 Units in D5W 500 ML] Med 07/16/19 16:15 Ordered 25,000 units in 500 ml IV TITRATE Sodium Chloride 0.9% [Saline Flush] Med 07/16/19 12:13 Active 10 ml FLUSH ASDIRECTED PRN Peripheral IV Insertion Adult [OM.PC] Routine Oth 07/16/19 12:13 Ordered EKG 12 Lead [EK] Stat Ther 07/16/19 12:13 Ordered Medication Orders Heparin Sodium/Dextrose (Heparin 25,000 Units In D5w 500 Ml) 25,000 units in 500 mls @ 10 mls/hr IV TITRATE KATHERINE; Protocol Sodium Chloride (Saline Flush) 10 ml FLUSH ASDIRECTED PRN PRN Reason: Keep Vein Open Last Admin: 07/16/19 12:23 Dose: 10 ml Labs: Laboratory Tests 07/16/19 07/16/19 07/16/19 Range/Units 12:05 12:05 12:05 WBC (3.98-10.04) K/mm3 RBC (3.98-5.22) M/mm3 Hgb (11.2-15.7) gm/L Hct (34.1-44.9) % MCV (79.4-94.8) fl MCH (25.6-32.2) pg MCHC (32.2-35.5) g/dl RDW Std Deviation (36.4-46.3) fL Plt Count (182-369) K/mm3 MPV (9.4-12.3) fl Neutrophils % (Manual) (40-60) % Band Neutrophils % (0-10) % Lymphocytes % (Manual) (20-40) % Atypical Lymphs % % Monocytes % (Manual) (2-10) % Eosinophils % (Manual) (0.7-5.8) % Basophils % (Manual) (0.1-1.2) Platelet Estimate Macrocytosis Target Cells RBC Morph Comment PT 12.4 H (9.7-12.0) SECONDS INR 1.15 APTT 24 D (22-31) SECONDS D-Dimer, Quantitative 0.49 (0.19-0.50) mg/L Sodium (136-145) mEq/L Potassium (3.5-5.1) mEq/L Chloride (98-107) mEq/L Carbon Dioxide (21-32) mEq/L Anion Gap (5-15) BUN (7-18) mg/dL Creatinine (0.55-1.02) mg/dL Est Cr Clr Drug Dosing mL/min Estimated GFR (MDRD) (>60) mL/min BUN/Creatinine Ratio (14-18) Glucose (83-115) mg/dL Calcium (8.5-10.1) mg/dL Total Bilirubin (0.2-1.0) mg/dL AST (15-37) U/L ALT (14-59) U/L Alkaline Phosphatase (46-116) U/L CK-MB (CK-2) (0-3.6) ng/ml Troponin I (0.00-0.056) ng/mL NT-Pro-B Natriuret Pep 8717 H (0-450) pg/mL Total Protein (6.4-8.2) g/dl Albumin (3.4-5.0) g/dl Globulin gm/dL Albumin/Globulin Ratio (1-2) Lipase (73-393) U/L 07/16/19 07/16/19 07/16/19 Range/Units 12:15 12:51 14:47 WBC 28.25 H (3.98-10.04) K/mm3 RBC 2.71 L (3.98-5.22) M/mm3 Hgb 9.1 L D (11.2-15.7) gm/L Hct 29.0 L (34.1-44.9) % MCV 107.0 H D (79.4-94.8) fl MCH 33.6 H (25.6-32.2) pg MCHC 31.4 L (32.2-35.5) g/dl RDW Std Deviation 52.9 H (36.4-46.3) fL Plt Count 192 (182-369) K/mm3 MPV 10.6 (9.4-12.3) fl Neutrophils % (Manual) 29 L (40-60) % Band Neutrophils % 0 (0-10) % Lymphocytes % (Manual) 69 H (20-40) % Atypical Lymphs % 0 % Monocytes % (Manual) 1 L (2-10) % Eosinophils % (Manual) 1 (0.7-5.8) % Basophils % (Manual) 0 L (0.1-1.2) Platelet Estimate Adequate Macrocytosis 2+ moderate Target Cells 1+ slight RBC Morph Comment Not Reportable PT (9.7-12.0) SECONDS INR APTT (22-31) SECONDS D-Dimer, Quantitative (0.19-0.50) mg/L Sodium 137 (136-145) mEq/L Potassium 3.7 (3.5-5.1) mEq/L Chloride 97 L (98-107) mEq/L Carbon Dioxide 29 (21-32) mEq/L Anion Gap 14.7 (5-15) BUN 26 H (7-18) mg/dL Creatinine 1.1 H (0.55-1.02) mg/dL Est Cr Clr Drug Dosing 27.95 mL/min Estimated GFR (MDRD) 48 (>60) mL/min BUN/Creatinine Ratio 23.6 H (14-18) Glucose 161 H (83-115) mg/dL Calcium 9.8 (8.5-10.1) mg/dL Total Bilirubin 2.1 H (0.2-1.0) mg/dL AST 30 (15-37) U/L ALT 31 (14-59) U/L Alkaline Phosphatase 96 (46-116) U/L CK-MB (CK-2) 1.9 (0-3.6) ng/ml Troponin I < 0.017 0.442 H* (0.00-0.056) ng/mL NT-Pro-B Natriuret Pep (0-450) pg/mL Total Protein 7.2 (6.4-8.2) g/dl Albumin 4.3 (3.4-5.0) g/dl Globulin 2.9 gm/dL Albumin/Globulin Ratio 1.5 (1-2) Lipase 336 (73-393) U/L Meds: Medications Generic Name Dose Route Start Last Admin Trade Name Freq PRN Reason Stop Dose Admin Heparin Sodium/Dextrose 25,000 units in 500 mls @ 10 mls/hr 07/16/19 16:15 Heparin 25,000 Units In D5w 500 Ml IV TITRATE KATHERINE Protocol 500 UNITS/HR Sodium Chloride 10 ml 07/16/19 12:13 07/16/19 12:23 Saline Flush FLUSH 10 ml ASDIRECTED PRN Administration Keep Vein Open Discontinued Medications Generic Name Dose Route Start Last Admin Trade Name Freradha PRN Reason Stop Dose Admin Aspirin 324 mg 07/16/19 12:13 07/16/19 12:22 Aspirin PO 07/16/19 12:14 324 mg ONETIME ONE Administration Furosemide 40 mg 07/16/19 14:35 07/16/19 15:09 Lasix IVPUSH 07/16/19 14:36 40 mg NOW ONE Administration Heparin Sodium (Porcine) 2,500 units 07/16/19 16:12 Heparin Sodium IVPUSH 07/16/19 16:13 ONETIME ONE Hydromorphone HCl 0.25 mg 07/16/19 12:23 07/16/19 12:31 Dilaudid IVPUSH 07/16/19 12:24 0.25 mg ONETIME ONE Administration Ondansetron HCl 4 mg 07/16/19 12:15 07/16/19 12:21 Zofran IVPUSH 07/16/19 12:16 4 mg ONETIME ONE Administration - Radiology Interpretation Free Text/Narrative:: Chest x-ray shows cardiomegaly. Small right-sided pleural effusion. Pacemaker, dual-chamber. No acute thoracic process. - Re-Assessments/Exams Free Text/Narrative Re-Assessment/Exam: 07/16/19 14:53 Checked on the patient. Reviewed the labs, EKG and imaging with the patient. She is resting comfortably and states that she is pain free. Final be to repeat the troponin at the three-hour alvaro and if it is still undetectablely low will likely send home. 07/16/19 15:54 Patient's troponin came back elevated. Initial was undetectably low at less than 0.017. Repeat troponin 0.44. Repeat EKG reviewed by myself and shows a paced rhythm. No obvious ischemic changes. 07/16/19 16:23 Case is discussed with Dr. marks and Dr. Pope, cardiology and hospitalist at [facility] in [place]. They agreed to accept patient for she will go by ground ambulance. we will start her on heparin Departure - Departure Time of Disposition: 16:26 Disposition: DC/Tfer to Acute Hospital 02 Reason for Transfer *Q: Other Condition: Serious Clinical Impression: Chronic lymphocytic leukemia, NSTEMI (non-ST elevated myocardial infarction) CHF (congestive heart failure) Qualifiers: Qualified Code(s): I50.9 - Heart failure, unspecified Referrals: Sarah Yap MD [Primary Care Provider] - Forms: ED Department Discharge - My Orders Last 24 Hours: My Active Orders 07/16/19 12:13 Cardiac Monitoring [RC] . DIRECTED Sodium Chloride 0.9% [Saline Flush] 10 ml FLUSH ASDIRECTED PRN Peripheral IV Insertion Adult [OM.PC] Routine EKG 12 Lead [EK] Stat 07/16/19 12:14 EKG Documentation Completion [RC] ASDIRECTED Peripheral IV Care [RC] . DIRECTED 07/16/19 12:21 Chest 1V Frontal [CR] Stat 07/16/19 15:23 EKG 12 Lead [EKG Documentation Completion] [RC] STAT 07/16/19 16:15 Heparin Sodium/D5W [Heparin 25,000 Units in D5W 500 ML] 25,000 units in 500 ml IV TITRATE - Assessment/Plan Last 24 Hours: My Active Orders 07/16/19 12:13 Cardiac Monitoring [RC] . DIRECTED Sodium Chloride 0.9% [Saline Flush] 10 ml FLUSH ASDIRECTED PRN Peripheral IV Insertion Adult [OM.PC] Routine EKG 12 Lead [EK] Stat 07/16/19 12:14 EKG Documentation Completion [RC] ASDIRECTED Peripheral IV Care [RC] . DIRECTED 07/16/19 12:21 Chest 1V Frontal [CR] Stat 07/16/19 15:23 EKG 12 Lead [EKG Documentation Completion] [RC] STAT 07/16/19 16:15 Heparin Sodium/D5W [Heparin 25,000 Units in D5W 500 ML] 25,000 units in 500 ml IV TITRATE
[2019-07-16] MEDS ORDERED: Furosemide 40 MG/4 ML VIAL IVPUSH ONE (14:35)
[2019-07-16] MEDS ORDERED: Heparin Sodium 5,000 Units/ML Vial IVPUSH ONE (16:12)
[2019-07-16] MEDS ORDERED: Heparin Sodium/D5W 25,000 UNITS/500 ML BAG IV SCH (16:15)
--- NOTE | 2019-07-21 06:41 | CR ---
Chest: Portable view of the chest was obtained. Comparison: Prior chest x-ray of 05/20/19. Heart is enlarged. Small right-sided pleural effusion is seen which has slightly decreased in amount when compared to previous exam. Probable small amount of left-sided pleural effusion is seen. Mild upper lobe pulmonary vascular redistribution is seen. Lungs otherwise are clear. Pacemaker is noted. Tortuous thoracic aorta is seen. Impression: 1. Probable bilateral small pleural effusions which have decreased in size on the right side when compared to prior study. 2. Stable cardiomegaly and upper lobe pulmonary vascular redistribution. 3. Pacemaker. Diagnostic code #3
== END 2019-07-16 17:00 ==
LOC: JD.ED 11:49
DX: I11.0 Hypertensive heart disease with heart failure (principal); I50.9 Heart failure, unspecified; I21.4 Non-ST elevation (NSTEMI) myocardial infarction; C91.10 Chronic lymphocytic leukemia of B-cell type not having achieved remission; K21.9 Gastro-esophageal reflux disease without esophagitis; I25.2 Old myocardial infarction; Z88.8 Allergy status to other drugs, medicaments and biological substances; Z79.82 Long term (current) use of aspirin; Z90.49 Acquired absence of other specified parts of digestive tract; Z98.890 Other specified postprocedural states; Z90.710 Acquired absence of both cervix and uterus; Z90.10 Acquired absence of unspecified breast and nipple; Z87.891 Personal history of nicotine dependence; Z86.73 Personal history of transient ischemic attack (TIA), and cerebral infarction without residual deficits; Z79.899 Other long term (current) drug therapy
CPT/HCPCS: 36415; 71045; 80053; 82553; 83690; 83880; 84484; 85007; 85027; 85379; 85610; 85730; 93005; 96365; 96375; 99285; A9270; J1170; J1644; J1940; J2405; 93010; 99284

== ENCOUNTER 2019-08-16 08:03 | Inpatient (IN) | payer MEDICARE, OTHER ==
[2019-08-16] MEDS ORDERED: Sodium Chloride 0.9% 10 ML Syringe FLUSH PRN (08:15)
[2019-08-16] MEDS ORDERED: methylPREDNISolone Sodium Succinate 125 MG/2 ML SDV IVPUSH ONE (08:16)
[2019-08-16] MEDS ORDERED: Albuterol/Ipratropium 3.0-0.5 MG/3 ML Neb Soln NEB ONE (08:16)
--- NOTE | 2019-08-16 08:28 | EDM.PDOC ---
ED HPI GENERAL MEDICAL PROBLEM - General Chief Complaint: Chest Pain Stated Complaint: [facility] Time Seen by Provider: 08/16/19 08:07 Source of Information: Reports: Patient, EMS History Limitations: Reports: No Limitations - History of Present Illness INITIAL COMMENTS - FREE TEXT/NARRATIVE: The patient presents by [facility] for shortness of breath. This started last night. She has no chest pain. She has a history of COPD, ND with stents and CHF. She is on 3L of oxygen by PA. She has no swelling in her legs. She has a mild cough but no fever or chills. She has no abdominal pain, nausea or vomiting. When EMS arrived her oxygen saturations were 60% on 3L but she has raynaud's and with ear probe she was in the upper 90s. Onset: Gradual Duration: Day(s): (Last night) Severity: Moderate Improves with: Reports: None Worsens with: Reports: None Associated Symptoms: Reports: Cough, Shortness of Breath. Denies: Chest Pain, Fever/Chills, Headaches, Nausea/Vomiting Chest Pain Score (Numeric/FACES): 2 - Related Data Allergies Allergy/AdvReac Type Severity Reaction Status Date / Time diatrizoate meglumine AdvReac Nausea and Verified 08/16/19 08:20 [From Gastrografin] Vomiting diatrizoate sodium AdvReac Nausea and Verified 08/16/19 08:20 [From Gastrografin] Vomiting Home Meds: Home Meds atorvaSTATin [Lipitor] 40 mg PO DAILY 10/16/15 [History] Cholecalciferol (Vitamin D3) [Vitamin D3] 1,000 unit PO DAILY 01/28/16 [History] Clopidogrel [Plavix] 75 mg PO DAILY 01/30/18 [History] Isosorbide Mononitrate [Imdur] 60 mg PO DAILY #30 tab.er 01/30/18 [Rx] Furosemide [Lasix] 0 mg PO DAILY 05/20/19 [History] Multivitamin with Minerals [Multiple Vitamin] 1 tab PO DAILY 05/20/19 [History] Pantoprazole Sodium [Protonix] 40 mg PO BID 05/20/19 [History] Esomeprazole Magnesium [Nexium] 20 mg PO DAILY 08/16/19 [History] Vit A/Vit C/Vit E/Zinc/Copper [Icaps Areds Softgel] 1 cap PO DAILY 08/16/19 [ History] Past Medical History HEENT History: Reports: Cataract Cardiovascular History: Reports: Hypertension, ND, Pacemaker, Stents, Other ( See Below) Other Cardiovascular History: plaque removal from carotid arteries Respiratory History: Reports: SOB Gastrointestinal History: Reports: GERD 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 Musculoskeletal History: Reports: Arthritis Neurological History: Reports: Headaches, Chronic, Vertigo Other Neuro History: x2 CVA; Raynauds Syndrome Psychiatric History: Reports: None Endocrine/Metabolic History: Reports: None Hematologic History: Reports: None Other Hematologic History: Chronic lymphocytic Leukemia-Dx 2003 Immunologic History: Reports: None 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, Leukemia Other Oncologic History: Chronic lymphocytic leukemia under control since 2003. Breast cysts not true cancer Dermatologic History: Reports: Eczema - Infectious Disease History Infectious Disease History: Reports: Shingles - Past Surgical History Head Surgeries/Procedures: Reports: None HEENT Surgical History: Reports: Tonsillectomy GI Surgical History: Reports: Appendectomy, Cholecystectomy, Colonoscopy, EGD Female Surgical History: Reports: Breast Biopsy, Hysterectomy, Mastectomy Social & Family History - Family History Family Medical History: Noncontributory Oncologic: Reports: Breast - Caffeine Use Caffeine Use: Reports: Coffee - Living Situation & Occupation Living situation: Reports: Occupation: Retired ED ROS GENERAL - Review of Systems Review Of Systems: See Below Constitutional: Reports: No Symptoms HEENT: Reports: No Symptoms Respiratory: Reports: Shortness of Breath, Cough Cardiovascular: Reports: No Symptoms Endocrine: Reports: No Symptoms GI/Abdominal: Reports: No Symptoms : Reports: No Symptoms Musculoskeletal: Reports: No Symptoms ED EXAM, GENERAL - Physical Exam Exam: See Below Exam Limited By: No Limitations General Appearance: Alert, No Apparent Distress Ears: Normal External Exam Nose: Normal Inspection Head: Atraumatic, Normocephalic Neck: Normal Inspection Respiratory/Chest: No Respiratory Distress, Decreased Breath Sounds Cardiovascular: Regular Rate, Rhythm, No Edema, No Murmur GI/Abdominal: Soft, Non-Tender, No Organomegaly, No Mass Back Exam: Normal Inspection Extremities: Normal Inspection Neurological: Alert, Oriented, No Motor/Sensory Deficits Course - Vital Signs Last Recorded V/S: Last Vital Signs Temp 98.7 F 08/16/19 08:11 Pulse 109 H 08/16/19 08:11 Resp 18 08/16/19 08:11 BP 152/85 H 08/16/19 08:11 Pulse Ox 94 L 08/16/19 08:16 - Orders/Labs/Meds Orders: Active Orders 24 hr Category Date Time Status Cardiac Monitoring [RC] . DIRECTED Care 08/16/19 08:15 Active EKG Documentation Completion [RC] STAT Care 08/16/19 08:15 Active Oxygen Therapy [RC] PRN Care 08/16/19 08:15 Active Peripheral IV Care [RC] . DIRECTED Care 08/16/19 08:15 Active RT Aerosol Therapy [RC] ASDIRECTED Care 08/16/19 08:16 Active Furosemide [Lasix] Med 08/16/19 11:03 Once 80 mg IVPUSH NOW ONE Sodium Chloride 0.9% [Saline Flush] Med 08/16/19 08:15 Active 10 ml FLUSH ASDIRECTED PRN Peripheral IV Insertion Adult [OM.PC] Stat Oth 08/16/19 08:15 Ordered Medication Orders Furosemide (Lasix) 80 mg IVPUSH NOW ONE Stop: 08/16/19 11:04 Sodium Chloride (Saline Flush) 10 ml FLUSH ASDIRECTED PRN PRN Reason: Keep Vein Open Last Admin: 08/16/19 08:46 Dose: 10 ml Labs: Laboratory Tests 08/16/19 08/16/19 08/16/19 Range/Units 08:15 08:15 08:15 WBC 20.20 H (3.98-10.04) K/mm3 RBC 3.62 L (3.98-5.22) M/mm3 Hgb 9.4 L (11.2-15.7) gm/dl Hct 32.6 L (34.1-44.9) % MCV 90.1 D (79.4-94.8) fl MCH 26.0 (25.6-32.2) pg MCHC 28.8 L (32.2-35.5) g/dl RDW Std Deviation 59.3 H (36.4-46.3) fL Plt Count 344 D (182-369) K/mm3 MPV 10.5 (9.4-12.3) fl Neut % (Auto) 22.1 L (34.0-71.1) % Lymph % (Auto) 73.3 H (19.3-51.7) % [place] % (Auto) 3.4 L (4.7-12.5) % Eos % (Auto) 0.8 (0.7-5.8) Baso % (Auto) 0.3 (0.1-1.2) % Neut # (Auto) 4.44 (1.56-6.13) K/mm3 Lymph # (Auto) 14.81 H (1.18-3.74) K/mm3 [place] # (Auto) 0.69 H (0.24-0.36) K/mm3 Eos # (Auto) 0.16 (0.04-0.36) K/mm3 Baso # (Auto) 0.07 (0.01-0.08) K/mm3 Manual Slide Review Abnormal smear D-Dimer, Quantitative (0.19-0.50) mg/L Sodium 138 (136-145) mEq/L Potassium 4.0 (3.5-5.1) mEq/L Chloride 98 (98-107) mEq/L Carbon Dioxide 31 (21-32) mEq/L Anion Gap 13.0 (5-15) BUN 21 H (7-18) mg/dL Creatinine 0.8 (0.55-1.02) mg/dL Est Cr Clr Drug Dosing 38.53 mL/min Estimated GFR (MDRD) > 60 (>60) mL/min BUN/Creatinine Ratio 26.3 H (14-18) Glucose 109 (83-115) mg/dL Calcium 9.4 (8.5-10.1) mg/dL Total Bilirubin 1.5 H (0.2-1.0) mg/dL AST 22 (15-37) U/L ALT 22 (14-59) U/L Alkaline Phosphatase 125 H (46-116) U/L Troponin I 0.018 (0.00-0.056) ng/mL NT-Pro-B Natriuret Pep 7444 H (0-450) pg/mL Total Protein 6.8 (6.4-8.2) g/dl Albumin 3.9 (3.4-5.0) g/dl Globulin 2.9 gm/dL Albumin/Globulin Ratio 1.3 (1-2) 08/16/19 Range/Units 08:15 WBC (3.98-10.04) K/mm3 RBC (3.98-5.22) M/mm3 Hgb (11.2-15.7) gm/dl Hct (34.1-44.9) % MCV (79.4-94.8) fl MCH (25.6-32.2) pg MCHC (32.2-35.5) g/dl RDW Std Deviation (36.4-46.3) fL Plt Count (182-369) K/mm3 MPV (9.4-12.3) fl Neut % (Auto) (34.0-71.1) % Lymph % (Auto) (19.3-51.7) % [place] % (Auto) (4.7-12.5) % Eos % (Auto) (0.7-5.8) Baso % (Auto) (0.1-1.2) % Neut # (Auto) (1.56-6.13) K/mm3 Lymph # (Auto) (1.18-3.74) K/mm3 [place] # (Auto) (0.24-0.36) K/mm3 Eos # (Auto) (0.04-0.36) K/mm3 Baso # (Auto) (0.01-0.08) K/mm3 Manual Slide Review D-Dimer, Quantitative 0.68 H (0.19-0.50) mg/L Sodium (136-145) mEq/L Potassium (3.5-5.1) mEq/L Chloride (98-107) mEq/L Carbon Dioxide (21-32) mEq/L Anion Gap (5-15) BUN (7-18) mg/dL Creatinine (0.55-1.02) mg/dL Est Cr Clr Drug Dosing mL/min Estimated GFR (MDRD) (>60) mL/min BUN/Creatinine Ratio (14-18) Glucose (83-115) mg/dL Calcium (8.5-10.1) mg/dL Total Bilirubin (0.2-1.0) mg/dL AST (15-37) U/L ALT (14-59) U/L Alkaline Phosphatase (46-116) U/L Troponin I (0.00-0.056) ng/mL NT-Pro-B Natriuret Pep (0-450) pg/mL Total Protein (6.4-8.2) g/dl Albumin (3.4-5.0) g/dl Globulin gm/dL Albumin/Globulin Ratio (1-2) Meds: Medications Generic Name Dose Route Start Last Admin Trade Name Dann PRN Reason Stop Dose Admin Furosemide 80 mg 08/16/19 11:03 Lasix IVPUSH 08/16/19 11:04 NOW ONE Sodium Chloride 10 ml 08/16/19 08:15 08/16/19 08:46 Saline Flush FLUSH 10 ml ASDIRECTED PRN Administration Keep Vein Open Discontinued Medications Generic Name Dose Route Start Last Admin Trade Name Freq PRN Reason Stop Dose Admin Albuterol/Ipratropium 3 ml 08/16/19 08:16 08/16/19 08:32 Duoneb 3.0-0.5 Mg/3 Ml NEB 08/16/19 08:17 3 ml ONETIME ONE Administration Furosemide 80 mg 08/16/19 11:00 Lasix IVPUSH 08/16/19 11:01 NOW ONE Iopamidol 100 ml 08/16/19 09:55 08/16/19 10:15 Isovue-370 (76%) IVPUSH 08/16/19 09:56 100 ml ONETIME ONE Administration Methylprednisolone Sodium Succinate 125 mg 08/16/19 08:16 08/16/19 08:46 Solu-Medrol IVPUSH 08/16/19 08:17 125 mg ONETIME ONE Administration Sodium Chloride 10 ml 08/16/19 09:55 08/16/19 10:15 Saline Flush FLUSH 08/16/19 09:56 10 ml ONETIME ONE Administration - Re-Assessments/Exams Free Text/Narrative Re-Assessment/Exam: 08/16/19 08:27 I ordered oxygen, IV saline lock, EKG, CXR, labs, solu-medrol 125mg IV, and duoneb. 08/16/19 11:04 Her EKG shows atrial fibrillation with no acute changes. 08/16/19 11:06 Her WBC is elevated at 20.2. Her Hgb was low at 9.4. Her D-dimer is elevated at 0.68. Her troponin is normal. Her BNP [place] elevated [place] 7444. Her CT shows pleural effusions as noted above. Cardiomegaly and mild pulmonary vascular congestion. No findings of pulmonary embolism. I have ordered a dose of lasix. I feel she does need to be admitted. I called Dr Goldberg and he agreed to the admission. Departure - Departure Time of Disposition: 11:10 Disposition: Admitted As Inpatient 67 Condition: Fair Clinical Impression: Hypoxia CHF (congestive heart failure) Qualifiers: Qualified Code(s): I50.9 - Heart failure, unspecified Forms: ED Department Discharge - My Orders Last 24 Hours: My Active Orders 08/16/19 08:15 Cardiac Monitoring [RC] . DIRECTED EKG Documentation Completion [RC] STAT Oxygen Therapy [RC] PRN Peripheral IV Care [RC] . DIRECTED Sodium Chloride 0.9% [Saline Flush] 10 ml FLUSH ASDIRECTED PRN Peripheral IV Insertion Adult [OM.PC] Stat 08/16/19 08:16 RT Aerosol Therapy [RC] ASDIRECTED 08/16/19 11:03 Furosemide [Lasix] 80 mg IVPUSH NOW ONE - Assessment/Plan Last 24 Hours: My Active Orders 08/16/19 08:15 Cardiac Monitoring [RC] . DIRECTED EKG Documentation Completion [RC] STAT Oxygen Therapy [RC] PRN Peripheral IV Care [RC] . DIRECTED Sodium Chloride 0.9% [Saline Flush] 10 ml FLUSH ASDIRECTED PRN Peripheral IV Insertion Adult [OM.PC] Stat 08/16/19 08:16 RT Aerosol Therapy [RC] ASDIRECTED 08/16/19 11:03 Furosemide [Lasix] 80 mg IVPUSH NOW ONE
[2019-08-16] MEDS ORDERED: Iopamidol 755 Mg/ML 100 ML Bottle IVPUSH ONE (09:55)
[2019-08-16] MEDS ORDERED: Sodium Chloride 0.9% 10 ML Syringe FLUSH ONE (09:55)
--- NOTE | 2019-08-16 09:59 | CR ---
Chest: Portable view of the chest was obtained. Comparison: Prior chest x-ray of 07/16/19. Small bilateral pleural effusions are seen. Findings are fairly stable from prior exam. Mild right basilar atelectasis is noted. Heart is enlarged. Tortuous thoracic aorta is seen. Scoliosis is noted within the spine. Bichamber pacemaker is noted. Bony structures are osteopenic. Impression: 1. Cardiomegaly and small bilateral pleural effusions. Pulmonary vessels are slightly congested. 2. Findings remain fairly stable from previous exam. Diagnostic code #2
--- NOTE | 2019-08-16 10:54 | CT ---
CT chest Technique: Multiple axial sections through the chest are obtained. Intravenous contrast was utilized. Study has been performed as a pulmonary angiogram protocol. Findings: Moderately large right-sided pleural effusion and small left-sided pleural effusion is noted. Thoracic aorta shows some ectasia. Ascending aorta has an AP dimension of 3.0 cm and descending thoracic aorta has an AP dimension of 2.5 cm. Heart is enlarged. Artifact is noted from pacemaker. Pulmonary arteries are well opacified. No filling defects of pulmonary embolism is seen. Slightly generous size of the main pulmonary arteries are seen which is felt to be of no acute significance. Haziness within the lungs are noted which is felt compatible with mild pulmonary vascular congestion. Bone window settings were reviewed which appear within normal limits for the patient's age. Impression: 1. Pleural effusions as noted above. Cardiomegaly and mild pulmonary vascular congestion. 2. No findings of pulmonary embolism. Diagnostic code #3
[2019-08-16] MEDS ORDERED: Furosemide 40 MG/4 ML VIAL IVPUSH ONE ×3 (11:00→18:00)
--- NOTE | 2019-08-16 13:21 | PCM.HP.2 ---
<Eveline Huang - Last Filed: 08/16/19 15:51> H&P History of Present Illness - General Date of Service: 08/16/19 Admit Problem/Dx: Admission Diagnosis/Problem Admission Diagnosis/Problem CHF, Congestive heart failure Source of Information: Patient, Family History Limitations: Reports: No Limitations - History of Present Illness Initial Comments - Free Text/Narative: Gabby is a 84 year old female with past medical history positive for CHF, severe mitral disease, Atrial fibrillation, anemia and CLL who presented for 2 day history of worsening shortness of breath. The patient at baseline has some shortness of breath when walking approximately 15 feet, but had worsening symptoms beginning . She also noted nausea, malaise, fatigue and a cough. She denies vomiting, diarrhea, constipation, hematochezia or melena, fever, hemoptysis, pedal edema. The patient has recently had some fluctuations in weight,. She was hospitalized in [place] approximately 1 month ago from anemia. During this time, she underwent colonoscopy and EGD, as well as a blood transfusion. Per patient, her colonoscopy was remarkable only for polyps. She was discharged with the understanding that she was going to discontinue her furosemide and her potassium, however the patient began to notice pedal edema and was placed back on furosemide and potassium by her primary care physician, Dr. Yap. She has not noted any pedal edema since she resumed furosemide. She is typically on 3 L of O2 at home. Other medical conditions include GERD, history of VT and Raynaud as well as carotid surgery. She has a history of double mastectomy for fibrocystic changes. While in the ER, the patient underwent chest xray, EKG, CT with angiogram and lab work. She was given Solu-medrol and duoneb. Her EKG demonstrated atrial fibrillation with no acute changes. Her WBC was elevated at 20.2. Her hemoglobin was low at 9.4. D dimer was elevated at 0.68 with normal troponin. Her BNP is elevated [place] 7444. CT demonstrated pleural effusions with cardiomegaly and mild pulmonary vascular congestion. The patient was provided with a dose of lax and the patient was admitted. Previous Echocardiogram done 01/21/19 demonstrates left ventricular ejection fraction of 40% with severe biatrial dilation and moderates residual mitral valve regurgitation with mitraclip present. There is also noted tricuspid regurgitation and mildly elevated pulmonary artery systolic pressure estimated to be 49.7 mmHg. Chest Pain Score (Numeric/FACES): 2 - Related Data Allergies/Adverse Reactions: Allergies Allergy/AdvReac Type Severity Reaction Status Date / Time diatrizoate meglumine AdvReac Nausea and Verified 08/16/19 08:20 [From Gastrografin] Vomiting diatrizoate sodium AdvReac Nausea and Verified 08/16/19 08:20 [From Gastrografin] Vomiting Home Medications: Home Meds atorvaSTATin [Lipitor] 40 mg PO DAILY 10/16/15 [History] Cholecalciferol (Vitamin D3) [Vitamin D3] 1,000 unit PO DAILY 01/28/16 [History] Clopidogrel [Plavix] 75 mg PO DAILY 01/30/18 [History] Isosorbide Mononitrate [Imdur] 60 mg PO DAILY #30 tab.er 01/30/18 [Rx] Multivitamin with Minerals [Multiple Vitamin] 1 tab PO DAILY 05/20/19 [History] Pantoprazole Sodium [Protonix] 40 mg PO BID 05/20/19 [History] Esomeprazole Magnesium [Nexium] 20 mg PO DAILY 08/16/19 [History] Vit A/Vit C/Vit E/Zinc/Copper [Icaps Areds Softgel] 1 cap PO DAILY 08/16/19 [ History] Past Medical History HEENT History: Reports: Cataract, Hard of Hearing, Impaired Vision Cardiovascular History: Reports: Afib, Heart Failure, Hypertension, VT, Pacemaker, Stents, Other (See Below) Other Cardiovascular History: plaque removal from carotid arteries Respiratory History: Reports: SOB Gastrointestinal History: Reports: GERD 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 Musculoskeletal History: Reports: Arthritis Neurological History: Reports: Headaches, Chronic, Vertigo Other Neuro History: x2 CVA; Raynauds Syndrome Psychiatric History: Reports: None Endocrine/Metabolic History: Reports: None, Vitamin D Deficiency Hematologic History: Reports: None Other Hematologic History: Chronic lymphocytic Leukemia-Dx 2003 Immunologic History: Reports: None Oncologic (Cancer) History: Reports: Leukemia Other Oncologic History: Chronic lymphocytic leukemia under control since 2003. Breast cysts not true cancer Dermatologic History: Reports: Eczema - Infectious Disease History Infectious Disease History: Reports: Shingles - Past Surgical History Head Surgeries/Procedures: Reports: None HEENT Surgical History: Reports: Tonsillectomy GI Surgical History: Reports: Appendectomy, Cholecystectomy, Colonoscopy, EGD Female Surgical History: Reports: Breast Biopsy, Hysterectomy, Mastectomy ( For fibrocystic breasts per the patient) Social & Family History - Family History Family Medical History: Noncontributory Oncologic: Reports: Breast - Tobacco Use Smoking Status *Q: Former Smoker Years of Tobacco use: 50 Packs/Tins Daily: 0.7 Used Tobacco, but Quit: Yes Month/Year Tobacco Last Used: 10 years ago Second Hand Smoke Exposure: Yes - Tobacco Core Measures Tobacco Use/Smoking Within Last 30 Days: No - Caffeine Use Caffeine Use: Reports: Coffee Caffeine Use Comment: patient states she drinks about a cup of coffee every morning - Recreational Drug Use Recreational Drug Use: No - Living Situation & Occupation Living situation: Reports: Occupation: Retired H&P Review of Systems - Review of Systems: Review Of Systems: See Below HEENT: Reports: Headaches, Rhinitis, Vertigo (Particularly in the am ), Other ( Scalp tenderness, Dentures, tinitis ) Pulmonary: Reports: Shortness of Breath, Cough. Denies: Wheezing Cardiovascular: Reports: Palpitations (Typical per patient due to a fib ). Denies: Chest Pain, Edema Gastrointestinal: Reports: Nausea. Denies: Black Stool, Bloody Stool, Constipation, Diarrhea, Difficulty Swallowing, Hematemesis, Hematochezia, Vomiting Genitourinary: Reports: No Symptoms Musculoskeletal: Reports: Shoulder Pain Skin: Reports: No Symptoms Psychiatric: Reports: No Symptoms Neurological: Reports: Dizziness, Headache Hematologic/Lymphatic: Reports: Anemia Exam - Exam Exam: See Below - Vital Signs Vital Signs: Last Vital Signs Temp 98.7 F 08/16/19 08:11 Pulse 109 H 08/16/19 08:11 Resp 18 08/16/19 08:11 BP 152/85 H 08/16/19 08:11 Pulse Ox 94 L 08/16/19 08:16 Weight: 105 lb 11.2 oz - Exam General: Alert, Oriented, 4 HEENT: Conjunctiva Clear, EOMI, Hearing Intact, Nares Patent, Pupils Equal Lungs: Other (No bronchophony, whispered petriloquy increased in the posterior lung field , increased dullness to percussion over the posterior lower lung, egophony decreased in lower lobe, increased respiratory effort ) Cardiovascular: Irregular Rhythm GI/Abdominal Exam: Normal Bowel Sounds, Soft, Non-Tender, No Organomegaly, No Distention, No Mass Back Exam: Normal Inspection Extremities: Normal Inspection, Non-Tender, No Pedal Edema, Normal Capillary Refill Peripheral Pulses: 1+: Posterior Tibial (L), Posterior Tibial (R) Skin: Warm, Dry, Intact Neurological: Cranial Nerves Intact Neuro Extensive - Mental Status: Alert, Oriented x3, Normal Mood/Affect, Normal Cognition Neuro Extensive - Motor, Sensory, Reflexes: CN II-XII Intact Psychiatric: Alert, Normal Affect, Normal Mood - Patient Data Lab Results Last 24 hrs: Laboratory Results - last 24 hr 08/16/19 08/16/19 08/16/19 Range/Units 08:15 08:15 08:15 WBC 20.20 H (3.98-10.04) K/mm3 RBC 3.62 L (3.98-5.22) M/mm3 Hgb 9.4 L (11.2-15.7) gm/dl Hct 32.6 L (34.1-44.9) % MCV 90.1 D (79.4-94.8) fl MCH 26.0 (25.6-32.2) pg MCHC 28.8 L (32.2-35.5) g/dl RDW Std Deviation 59.3 H (36.4-46.3) fL Plt Count 344 D (182-369) K/mm3 MPV 10.5 (9.4-12.3) fl Neut % (Auto) 22.1 L (34.0-71.1) % Lymph % (Auto) 73.3 H (19.3-51.7) % [place] % (Auto) 3.4 L (4.7-12.5) % Eos % (Auto) 0.8 (0.7-5.8) Baso % (Auto) 0.3 (0.1-1.2) % Neut # (Auto) 4.44 (1.56-6.13) K/mm3 Lymph # (Auto) 14.81 H (1.18-3.74) K/mm3 [place] # (Auto) 0.69 H (0.24-0.36) K/mm3 Eos # (Auto) 0.16 (0.04-0.36) K/mm3 Baso # (Auto) 0.07 (0.01-0.08) K/mm3 Manual Slide Review Abnormal smear D-Dimer, Quantitative (0.19-0.50) mg/L Sodium 138 (136-145) mEq/L Potassium 4.0 (3.5-5.1) mEq/L Chloride 98 (98-107) mEq/L Carbon Dioxide 31 (21-32) mEq/L Anion Gap 13.0 (5-15) BUN 21 H (7-18) mg/dL Creatinine 0.8 (0.55-1.02) mg/dL Est Cr Clr Drug Dosing 38.53 mL/min Estimated GFR (MDRD) > 60 (>60) mL/min BUN/Creatinine Ratio 26.3 H (14-18) Glucose 109 (83-115) mg/dL Calcium 9.4 (8.5-10.1) mg/dL Total Bilirubin 1.5 H (0.2-1.0) mg/dL AST 22 (15-37) U/L ALT 22 (14-59) U/L Alkaline Phosphatase 125 H (46-116) U/L Troponin I 0.018 (0.00-0.056) ng/mL NT-Pro-B Natriuret Pep 7444 H (0-450) pg/mL Total Protein 6.8 (6.4-8.2) g/dl Albumin 3.9 (3.4-5.0) g/dl Globulin 2.9 gm/dL Albumin/Globulin Ratio 1.3 (1-2) 08/16/19 Range/Units 08:15 WBC (3.98-10.04) K/mm3 RBC (3.98-5.22) M/mm3 Hgb (11.2-15.7) gm/dl Hct (34.1-44.9) % MCV (79.4-94.8) fl MCH (25.6-32.2) pg MCHC (32.2-35.5) g/dl RDW Std Deviation (36.4-46.3) fL Plt Count (182-369) K/mm3 MPV (9.4-12.3) fl Neut % (Auto) (34.0-71.1) % Lymph % (Auto) (19.3-51.7) % [place] % (Auto) (4.7-12.5) % Eos % (Auto) (0.7-5.8) Baso % (Auto) (0.1-1.2) % Neut # (Auto) (1.56-6.13) K/mm3 Lymph # (Auto) (1.18-3.74) K/mm3 [place] # (Auto) (0.24-0.36) K/mm3 Eos # (Auto) (0.04-0.36) K/mm3 Baso # (Auto) (0.01-0.08) K/mm3 Manual Slide Review D-Dimer, Quantitative 0.68 H (0.19-0.50) mg/L Sodium (136-145) mEq/L Potassium (3.5-5.1) mEq/L Chloride (98-107) mEq/L Carbon Dioxide (21-32) mEq/L Anion Gap (5-15) BUN (7-18) mg/dL Creatinine (0.55-1.02) mg/dL Est Cr Clr Drug Dosing mL/min Estimated GFR (MDRD) (>60) mL/min BUN/Creatinine Ratio (14-18) Glucose (83-115) mg/dL Calcium (8.5-10.1) mg/dL Total Bilirubin (0.2-1.0) mg/dL AST (15-37) U/L ALT (14-59) U/L Alkaline Phosphatase (46-116) U/L Troponin I (0.00-0.056) ng/mL NT-Pro-B Natriuret Pep (0-450) pg/mL Total Protein (6.4-8.2) g/dl Albumin (3.4-5.0) g/dl Globulin gm/dL Albumin/Globulin Ratio (1-2) Result Diagrams: 08/16/19 08:15 08/16/19 08:15 Problem List Initiated/Reviewed/Updated: Yes Orders Last 24hrs: Active Orders 24 hr Category Date Time Status Patient Status [ADT] Routine ADT 08/16/19 11:38 Active Cardiac Monitoring [RC] . DIRECTED Care 08/16/19 08:15 Active Oxygen Therapy [RC] PRN Care 08/16/19 08:15 Active RT Aerosol Therapy [RC] ASDIRECTED Care 08/16/19 08:16 Active Sodium Chloride 0.9% [Saline Flush] Med 08/16/19 08:15 Active 10 ml FLUSH ASDIRECTED PRN Peripheral IV Insertion Adult [OM.PC] Stat Oth 08/16/19 08:15 Ordered Medication Orders Sodium Chloride (Saline Flush) 10 ml FLUSH ASDIRECTED PRN PRN Reason: Keep Vein Open Last Admin: 08/16/19 08:46 Dose: 10 ml Assessment/Plan Comment:: Assessment: * Shortness of breath * Continue O2 therapy * Pleural effusion, probable secondary to exacerbation of CHF: CT demonstrated moderately large right-sided pleural effusion and small left-sided pleural effusion * Furosemide * Potassium supplementation * Repeat Chest Xray tomorrow am * Consider Surgery consult if pleural effusion does not improve with diuretic * Leukocytosis: WBC 20.2 * Likely secondary to CLL * Repeat CBC in the am to monitor * Normocytic anemia: Hgb 9.4 * Repeat CBC in the am to monitor Monitor Plan: * Activity as tolerated * Heart Healthy diet * Monitor INOs * GI/DVT prophylaxis * Recheck CBC and CMP and Mag in the am * Reconcile home meds * See above <Jose Goldberg III - Last Filed: 08/16/19 21:38> H&P History of Present Illness - General Admit Problem/Dx: Admission Diagnosis/Problem Admission Diagnosis/Problem CHF, Congestive heart failure Exam - Vital Signs Vital Signs: Last Vital Signs Temp 97.3 F 08/16/19 20:06 Pulse 86 08/16/19 20:06 Resp 22 H 08/16/19 20:06 BP 105/66 08/16/19 20:06 Pulse Ox 100 08/16/19 20:06 - Patient Data Lab Results Last 24 hrs: Laboratory Results - last 24 hr 08/16/19 08/16/19 08/16/19 Range/Units 08:15 08:15 08:15 WBC 20.20 H (3.98-10.04) K/mm3 RBC 3.62 L (3.98-5.22) M/mm3 Hgb 9.4 L (11.2-15.7) gm/dl Hct 32.6 L (34.1-44.9) % MCV 90.1 D (79.4-94.8) fl MCH 26.0 (25.6-32.2) pg MCHC 28.8 L (32.2-35.5) g/dl RDW Std Deviation 59.3 H (36.4-46.3) fL Plt Count 344 D (182-369) K/mm3 MPV 10.5 (9.4-12.3) fl Neut % (Auto) 22.1 L (34.0-71.1) % Lymph % (Auto) 73.3 H (19.3-51.7) % [place] % (Auto) 3.4 L (4.7-12.5) % Eos % (Auto) 0.8 (0.7-5.8) Baso % (Auto) 0.3 (0.1-1.2) % Neut # (Auto) 4.44 (1.56-6.13) K/mm3 Lymph # (Auto) 14.81 H (1.18-3.74) K/mm3 [place] # (Auto) 0.69 H (0.24-0.36) K/mm3 Eos # (Auto) 0.16 (0.04-0.36) K/mm3 Baso # (Auto) 0.07 (0.01-0.08) K/mm3 Manual Slide Review Abnormal smear D-Dimer, Quantitative (0.19-0.50) mg/L Sodium 138 (136-145) mEq/L Potassium 4.0 (3.5-5.1) mEq/L Chloride 98 (98-107) mEq/L Carbon Dioxide 31 (21-32) mEq/L Anion Gap 13.0 (5-15) BUN 21 H (7-18) mg/dL Creatinine 0.8 (0.55-1.02) mg/dL Est Cr Clr Drug Dosing 38.53 mL/min Estimated GFR (MDRD) > 60 (>60) mL/min BUN/Creatinine Ratio 26.3 H (14-18) Glucose 109 (83-115) mg/dL Calcium 9.4 (8.5-10.1) mg/dL Total Bilirubin 1.5 H (0.2-1.0) mg/dL AST 22 (15-37) U/L ALT 22 (14-59) U/L Alkaline Phosphatase 125 H (46-116) U/L Troponin I 0.018 (0.00-0.056) ng/mL NT-Pro-B Natriuret Pep 7444 H (0-450) pg/mL Total Protein 6.8 (6.4-8.2) g/dl Albumin 3.9 (3.4-5.0) g/dl Globulin 2.9 gm/dL Albumin/Globulin Ratio 1.3 (1-2) 08/16/19 Range/Units 08:15 WBC (3.98-10.04) K/mm3 RBC (3.98-5.22) M/mm3 Hgb (11.2-15.7) gm/dl Hct (34.1-44.9) % MCV (79.4-94.8) fl MCH (25.6-32.2) pg MCHC (32.2-35.5) g/dl RDW Std Deviation (36.4-46.3) fL Plt Count (182-369) K/mm3 MPV (9.4-12.3) fl Neut % (Auto) (34.0-71.1) % Lymph % (Auto) (19.3-51.7) % [place] % (Auto) (4.7-12.5) % Eos % (Auto) (0.7-5.8) Baso % (Auto) (0.1-1.2) % Neut # (Auto) (1.56-6.13) K/mm3 Lymph # (Auto) (1.18-3.74) K/mm3 [place] # (Auto) (0.24-0.36) K/mm3 Eos # (Auto) (0.04-0.36) K/mm3 Baso # (Auto) (0.01-0.08) K/mm3 Manual Slide Review D-Dimer, Quantitative 0.68 H (0.19-0.50) mg/L Sodium (136-145) mEq/L Potassium (3.5-5.1) mEq/L Chloride (98-107) mEq/L Carbon Dioxide (21-32) mEq/L Anion Gap (5-15) BUN (7-18) mg/dL Creatinine (0.55-1.02) mg/dL Est Cr Clr Drug Dosing mL/min Estimated GFR (MDRD) (>60) mL/min BUN/Creatinine Ratio (14-18) Glucose (83-115) mg/dL Calcium (8.5-10.1) mg/dL Total Bilirubin (0.2-1.0) mg/dL AST (15-37) U/L ALT (14-59) U/L Alkaline Phosphatase (46-116) U/L Troponin I (0.00-0.056) ng/mL NT-Pro-B Natriuret Pep (0-450) pg/mL Total Protein (6.4-8.2) g/dl Albumin (3.4-5.0) g/dl Globulin gm/dL Albumin/Globulin Ratio (1-2) Result Diagrams: 08/16/19 08:15 08/16/19 08:15 Problem List Initiated/Reviewed/Updated: Yes Orders Last 24hrs: Active Orders 24 hr Category Date Time Status Patient Status [ADT] Routine ADT 08/16/19 11:38 Active Cardiac Monitoring [RC] . DIRECTED Care 08/16/19 08:15 Active Oxygen Therapy [RC] PRN Care 08/16/19 14:59 Active RT Aerosol Therapy [RC] ASDIRECTED Care 08/16/19 08:16 Active Up ad Jazlyn [RC] ASDIRECTED Care 08/16/19 14:59 Active VTE/DVT Education [RC] Care 08/16/19 14:59 Active Vital Signs [RC] Q4HR Care 08/16/19 14:59 Active Heart Healthy Diet [DIET] Diet 08/16/19 Lunch Active Chest 1V Frontal [CR] AM Exams 08/17/19 05:11 Ordered CBC WITH AUTO DIFF [HEME] AM Lab 08/17/19 05:11 Ordered CBC WITH AUTO DIFF [HEME] AM Lab 08/18/19 05:11 Ordered CBC WITH AUTO DIFF [HEME] AM Lab 08/19/19 05:11 Ordered CBC WITH AUTO DIFF [HEME] AM Lab 08/20/19 05:11 Ordered COMPREHENSIVE METABOLIC PN,CMP [CHEM] AM Lab 08/17/19 05:11 Ordered COMPREHENSIVE METABOLIC PN,CMP [CHEM] AM Lab 08/18/19 05:11 Ordered COMPREHENSIVE METABOLIC PN,CMP [CHEM] AM Lab 08/19/19 05:11 Ordered COMPREHENSIVE METABOLIC PN,CMP [CHEM] AM Lab 08/20/19 05:11 Ordered MAGNESIUM [CHEM] AM Lab 08/17/19 05:11 Ordered MAGNESIUM [CHEM] AM Lab 08/18/19 05:11 Ordered MAGNESIUM [CHEM] AM Lab 08/19/19 05:11 Ordered MAGNESIUM [CHEM] AM Lab 08/20/19 05:11 Ordered Acetaminophen [Tylenol] Med 08/16/19 14:59 Active 650 mg PO Q4H PRN Clopidogrel [Plavix] Med 08/17/19 09:00 Active 75 mg PO DAILY Enoxaparin [Lovenox] Med 08/17/19 09:00 Active 40 mg SUBCUT DAILY Isosorbide Mononitrate [Imdur] Med 08/17/19 09:00 Active 30 mg PO DAILY Metoprolol Succinate [Toprol XL] Med 08/16/19 15:15 Active 25 mg PO Q24H Ondansetron [Zofran] Med 08/16/19 14:59 Active 4 mg IV Q4H PRN Pantoprazole [ProTONIX] Med 08/16/19 21:00 Active 40 mg PO BID Potassium Chloride [Klor-Con M20] Med 08/16/19 15:15 Active 20 meq PO DAILY Rosuvastatin [Crestor] Med 08/17/19 09:00 Active 10 mg PO DAILY Sodium Chloride 0.9% [Saline Flush] Med 08/16/19 08:15 Active 10 ml FLUSH ASDIRECTED PRN Peripheral IV Insertion Adult [OM.PC] Stat Oth 08/16/19 08:15 Ordered Resuscitation Status Routine Resus Stat 08/16/19 13:32 Ordered Medication Orders Acetaminophen (Tylenol) 650 mg PO Q4H PRN PRN Reason: Pain (Mild 1-3)/fever Clopidogrel Bisulfate (Plavix) 75 mg PO DAILY [facility] Enoxaparin Sodium (Lovenox) 40 mg SUBCUT DAILY [facility] Isosorbide Mononitrate (Imdur) 30 mg PO DAILY [facility] Metoprolol Succinate (Toprol Xl) 25 mg PO Q24H [facility] Last Admin: 08/16/19 17:00 Dose: 25 mg Ondansetron HCl (Zofran) 4 mg IV Q4H PRN PRN Reason: Nausea/Vomiting Pantoprazole Sodium (Protonix) 40 mg PO BID [facility] Last Admin: 08/16/19 20:10 Dose: 40 mg Potassium Chloride (Klor-Con M20) 20 meq PO DAILY [facility] Last Admin: 08/16/19 16:59 Dose: 20 meq Rosuvastatin Calcium (Crestor) 10 mg PO DAILY KATHERINE Sodium Chloride (Saline Flush) 10 ml FLUSH ASDIRECTED PRN PRN Reason: Keep Vein Open Last Admin: 08/16/19 08:46 Dose: 10 ml Assessment/Plan Comment:: I personally interviewed, examined, and discussed the plan with the medical student, Eveline Huang. I agree with the treatment and plan. - Mortality Measure Prognosis:: Poor
[2019-08-16] MEDS ORDERED: Acetaminophen 325 MG Tab PO PRN (14:59)
[2019-08-16] MEDS ORDERED: Ondansetron 4 MG/2 ML SDV IV PRN (14:59)
[2019-08-16] MEDS: Potassium Chloride 20 MEQ Tab.ER PO SCH (16:59)
[2019-08-16] MEDS: Metoprolol Succinate 25 MG Tab.ER PO SCH (17:00)
[2019-08-16] MEDS: Pantoprazole 40 MG Tab.CR PO SCH (20:10)
[2019-08-16] MEDS ORDERED: Potassium Chloride 20 MEQ Tab.ER PO ONE (21:40)
[2019-08-17] MEDS: Enoxaparin 40 MG/0.4 ML Syringe SUBCUT SCH (08:17)
[2019-08-17] MEDS: Potassium Chloride 20 MEQ Tab.ER PO SCH (08:17)
[2019-08-17] MEDS: Pantoprazole 40 MG Tab.CR PO SCH ×2 (08:18→20:33)
[2019-08-17] MEDS: Furosemide 40 MG/4 ML VIAL IVPUSH SCH (08:18)
[2019-08-17] MEDS: Clopidogrel 75 MG Tab PO SCH (08:18)
[2019-08-17] MEDS: Isosorbide Mononitrate 30 MG Tab.ER PO SCH (08:18)
[2019-08-17] MEDS: Rosuvastatin 10 MG Tab PO SCH (08:18)
--- NOTE | 2019-08-17 08:33 | CR ---
Chest: Portable view of the chest was obtained. Comparison: Prior chest CT study of 08/16/19 and chest x-ray also performed on 08/16/19. Bilateral pleural effusions are noted which are slightly larger on the right side and is a stable finding from previous study. Heart is enlarged. Tortuous thoracic aorta is seen. Pacemaker is noted. Pulmonary vessels show minimal increase which appears stable. Bony structures are grossly intact. Impression: 1. Findings as noted above. No change from previous chest x-ray is identified. Diagnostic code #3
[2019-08-17] MEDS ORDERED: Magnesium Sulfate/Water 2 GM in Premix Bag 1 BAG IV ONE (12:00)
[2019-08-17] MEDS ORDERED: Sodium Chloride 0.9% 250 ML IV SCH (12:30)
--- NOTE | 2019-08-17 13:01 | PCM.PN ---
- General Info Date of Service: 08/17/19 Admission Dx/Problem (Free Text): Admission Diagnosis/Problem Admission Diagnosis/Problem CHF, Congestive heart failure Subjective Update: patient states that she is feeling much better. She has less dyspnea, but not back to baseline. - Review of Systems General: Reports: No Symptoms HEENT: Reports: No Symptoms Pulmonary: Reports: Shortness of Breath, Cough Cardiovascular: Reports: No Symptoms Gastrointestinal: Reports: No Symptoms - Patient Data Vitals - Most Recent: Last Vital Signs Temp 98.1 F 08/17/19 08:16 Pulse 81 08/17/19 08:16 Resp 18 08/17/19 08:16 BP 103/64 08/17/19 08:18 Pulse Ox 99 08/17/19 08:16 Weight - Most Recent: 102 lb 9.6 oz I&O - Last 24 Hours: Intake & Output 08/16/19 08/17/19 08/17/19 22:59 06:59 14:59 Intake Total 800 800 300 Output Total 2050 1050 Balance -1250 -250 300 Imaging Impressions - Last 24 Hours: chest x-ray shows minimal improvement in the right pleural effusion. Lab Results Last 24 Hours: Laboratory Results - last 24 hr 08/17/19 08/17/19 08/17/19 Range/Units 04:30 04:30 08:50 WBC 24.43 H (3.98-10.04) K/mm3 RBC 3.25 L (3.98-5.22) M/mm3 Hgb 8.6 L (11.2-15.7) gm/dl Hct 28.8 L (34.1-44.9) % MCV 88.6 (79.4-94.8) fl MCH 26.5 (25.6-32.2) pg MCHC 29.9 L (32.2-35.5) g/dl RDW Std Deviation 57.2 H (36.4-46.3) fL Plt Count 298 (182-369) K/mm3 MPV 10.3 (9.4-12.3) fl Neut % (Auto) 40.3 (34.0-71.1) % Lymph % (Auto) 54.2 H (19.3-51.7) % [place] % (Auto) 5.0 (4.7-12.5) % Eos % (Auto) 0 L (0.7-5.8) Baso % (Auto) 0.1 (0.1-1.2) % Neut # (Auto) 9.84 H (1.56-6.13) K/mm3 Lymph # (Auto) 13.25 H (1.18-3.74) K/mm3 [place] # (Auto) 1.22 H (0.24-0.36) K/mm3 Eos # (Auto) 0.00 L (0.04-0.36) K/mm3 Baso # (Auto) 0.02 (0.01-0.08) K/mm3 Manual Slide Review Abnormal smear Sodium 138 (136-145) mEq/L Potassium 3.7 (3.5-5.1) mEq/L Chloride 99 (98-107) mEq/L Carbon Dioxide 32 (21-32) mEq/L Anion Gap 10.7 (5-15) BUN 21 H (7-18) mg/dL Creatinine 0.8 (0.55-1.02) mg/dL Est Cr Clr Drug Dosing 39.15 mL/min Estimated GFR (MDRD) > 60 (>60) mL/min BUN/Creatinine Ratio 26.3 H (14-18) Glucose 127 H (83-115) mg/dL Calcium 8.6 (8.5-10.1) mg/dL Magnesium 1.8 (1.8-2.4) mg/dl Total Bilirubin 1.1 H (0.2-1.0) mg/dL AST 19 (15-37) U/L ALT 16 (14-59) U/L Alkaline Phosphatase 107 (46-116) U/L NT-Pro-B Natriuret Pep 6559 H (0-450) pg/mL Total Protein 5.8 L (6.4-8.2) g/dl Albumin 3.3 L (3.4-5.0) g/dl Globulin 2.5 gm/dL Albumin/Globulin Ratio 1.3 (1-2) Med Orders - Current: Current Medications Acetaminophen (Tylenol) 650 mg PO Q4H PRN PRN Reason: Pain (Mild 1-3)/fever Clopidogrel Bisulfate (Plavix) 75 mg PO DAILY [facility] Last Admin: 08/17/19 08:18 Dose: 75 mg Enoxaparin Sodium (Lovenox) 40 mg SUBCUT DAILY [facility] Last Admin: 08/17/19 08:17 Dose: 40 mg Furosemide (Lasix) 40 mg IVPUSH DAILY [facility] Last Admin: 08/17/19 08:18 Dose: 40 mg Furosemide (Lasix) 40 mg IVPUSH ONETIME ONE Stop: 08/17/19 15:01 Magnesium Sulfate 2 gm/ Premix 50 mls @ 25 mls/hr IV ONETIME ONE Stop: 08/17/19 13:59 Last Admin: 08/17/19 12:18 Dose: 25 mls/hr Sodium Chloride (Normal Saline) 250 mls @ 50 mls/hr IV ASDIRECTED [facility] Last Admin: 08/17/19 12:32 Dose: 50 mls/hr Isosorbide Mononitrate (Imdur) 30 mg PO DAILY [facility] Last Admin: 08/17/19 08:18 Dose: 30 mg Magnesium Oxide (Magnesium Oxide) 400 mg PO BID [facility] Metoprolol Succinate (Toprol Xl) 25 mg PO Q24H [facility] Last Admin: 08/16/19 17:00 Dose: 25 mg Ondansetron HCl (Zofran) 4 mg IV Q4H PRN PRN Reason: Nausea/Vomiting Pantoprazole Sodium (Protonix) 40 mg PO BID [facility] Last Admin: 08/17/19 08:18 Dose: 40 mg Potassium Chloride (Klor-Con M20) 20 meq PO DAILY [facility] Last Admin: 08/17/19 08:17 Dose: 20 meq Potassium Chloride (Klor-Con M20) 20 meq PO ONETIME ONE Stop: 08/17/19 17:01 Rosuvastatin Calcium (Crestor) 10 mg PO DAILY [facility] Last Admin: 08/17/19 08:18 Dose: 10 mg Sodium Chloride (Saline Flush) 10 ml FLUSH ASDIRECTED PRN PRN Reason: Keep Vein Open Last Admin: 08/16/19 08:46 Dose: 10 ml Discontinued Medications Albuterol/Ipratropium (Duoneb 3.0-0.5 Mg/3 Ml) 3 ml NEB ONETIME ONE Stop: 08/16/19 08:17 Last Admin: 08/16/19 08:32 Dose: 3 ml Furosemide (Lasix) 80 mg IVPUSH NOW ONE Stop: 08/16/19 11:01 Last Admin: 08/16/19 11:36 Dose: 80 mg Furosemide (Lasix) 80 mg IVPUSH NOW ONE Stop: 08/16/19 11:04 Last Admin: 08/16/19 11:55 Dose: Not Given Furosemide (Lasix) 40 mg IVPUSH ONETIME ONE Stop: 08/16/19 18:01 Last Admin: 08/16/19 17:01 Dose: 40 mg Iopamidol (Isovue-370 (76%)) 100 ml IVPUSH ONETIME ONE Stop: 08/16/19 09:56 Last Admin: 08/16/19 10:15 Dose: 100 ml Methylprednisolone Sodium Succinate (Solu-Medrol) 125 mg IVPUSH ONETIME ONE Stop: 08/16/19 08:17 Last Admin: 08/16/19 08:46 Dose: 125 mg Potassium Chloride (Klor-Con M20) 20 meq PO ONETIME ONE Stop: 08/16/19 21:41 Last Admin: 08/16/19 22:48 Dose: 20 meq Sodium Chloride (Saline Flush) 10 ml FLUSH ONETIME ONE Stop: 08/16/19 09:56 Last Admin: 08/16/19 10:15 Dose: 10 ml - Exam Quality Assessment: Supplemental Oxygen General: Alert, Oriented HEENT: Pupils Equal, Pupils Reactive, EOMI, Mucous Membr. Moist/[place] Neck: Supple Lungs: Decreased Breath Sounds (decreased right lower lobe), Rales (bibasilar) Cardiovascular: Regular Rate, Irregular Rhythm GI/Abdominal Exam: Normal Bowel Sounds, Soft, Non-Tender, No Organomegaly, No Distention, No Abnormal Bruit, No Mass Extremities: Normal Inspection, Normal Range of Motion, Non-Tender, No Pedal Edema, Normal Capillary Refill Skin: Warm, Dry, Intact Psy/Mental Status: Alert, Normal Affect, Normal Mood - Problem List Review Problem List Initiated/Reviewed/Updated: Yes - My Orders Last 24 Hours: My Active Orders 08/16/19 13:32 Resuscitation Status Routine 08/16/19 14:59 Oxygen Therapy [RC] PRN Up ad Jazlyn [RC] ASDIRECTED VTE/DVT Education [RC] Vital Signs [RC] Q4HR Acetaminophen [Tylenol] 650 mg PO Q4H PRN Ondansetron [Zofran] 4 mg IV Q4H PRN 08/16/19 15:15 Metoprolol Succinate [Toprol XL] 25 mg PO Q24H Potassium Chloride [Klor-Con M20] 20 meq PO DAILY 08/16/19 21:00 Pantoprazole [ProTONIX] 40 mg PO BID 08/17/19 09:00 Clopidogrel [Plavix] 75 mg PO DAILY Enoxaparin [Lovenox] 40 mg SUBCUT DAILY Furosemide [Lasix] 40 mg IVPUSH DAILY Isosorbide Mononitrate [Imdur] 30 mg PO DAILY Rosuvastatin [Crestor] 10 mg PO DAILY 08/17/19 12:00 Magnesium Sulfate/Water [Magnesium Sulfate in Water Premix] 2 gm Premix Bag 1 bag IV ONETIME 08/17/19 12:30 Sodium Chloride 0.9% [Normal Saline] 250 ml IV ASDIRECTED 08/17/19 15:00 Furosemide [Lasix] 40 mg IVPUSH ONETIME ONE 08/17/19 17:00 Potassium Chloride [Klor-Con M20] 20 meq PO ONETIME ONE 08/17/19 21:00 Magnesium Oxide 400 mg PO BID 08/18/19 05:00 PRO B-TYPE NATRIUR PEPT,BNPPRO [CHEM] DAILY 08/18/19 05:11 CBC WITH AUTO DIFF [HEME] AM COMPREHENSIVE METABOLIC PN,CMP [CHEM] AM MAGNESIUM [CHEM] AM 08/19/19 05:00 PRO B-TYPE NATRIUR PEPT,BNPPRO [CHEM] DAILY 08/19/19 05:11 CBC WITH AUTO DIFF [HEME] AM COMPREHENSIVE METABOLIC PN,CMP [CHEM] AM MAGNESIUM [CHEM] AM 08/20/19 05:11 CBC WITH AUTO DIFF [HEME] AM COMPREHENSIVE METABOLIC PN,CMP [CHEM] AM MAGNESIUM [CHEM] AM - Plan Plan:: Assessment: * Shortness of breath secondary to exacerbation of reduced ejection fraction heart failure * Continue O2 therapy * BNP 7444-->6559 * Pleural effusion, probable secondary to exacerbation of CHF: CT demonstrated moderately large right-sided pleural effusion and small left-sided pleural effusion * Furosemide 40 mg IV twice a day * Potassium and magnesium supplementation to maintain normal levels * Repeat BNP * Consider Surgery consult if pleural effusion does not improve with diuretic * Leukocytosis: WBC 20.2 * 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
[2019-08-17] MEDS ORDERED: Furosemide 40 MG/4 ML VIAL IVPUSH ONE (15:00)
[2019-08-17] MEDS: Metoprolol Succinate 25 MG Tab.ER PO SCH ×2 (15:50→20:33)
[2019-08-17] MEDS ORDERED: Potassium Chloride 20 MEQ Tab.ER PO ONE (17:00)
[2019-08-17] MEDS: Magnesium Oxide 400 MG Tab PO SCH (20:33)
[2019-08-18] MEDS: Furosemide 40 MG/4 ML VIAL IVPUSH SCH (08:06)
[2019-08-18] MEDS: Enoxaparin 40 MG/0.4 ML Syringe SUBCUT SCH (08:06)
[2019-08-18] MEDS: Magnesium Oxide 400 MG Tab PO SCH ×2 (08:06→19:53)
[2019-08-18] MEDS: Pantoprazole 40 MG Tab.CR PO SCH ×2 (08:06→19:53)
[2019-08-18] MEDS: Rosuvastatin 10 MG Tab PO SCH (08:06)
[2019-08-18] MEDS: Isosorbide Mononitrate 30 MG Tab.ER PO SCH (08:07)
[2019-08-18] MEDS: Potassium Chloride 20 MEQ Tab.ER PO SCH (08:07)
[2019-08-18] MEDS: Clopidogrel 75 MG Tab PO SCH (08:07)
--- NOTE | 2019-08-18 08:46 | CR ---
Chest: Portable view of the chest was obtained. Comparison: Prior chest x-ray of 08/17/19. Stable right-sided pleural effusion. Slightly diminished left-sided pleural effusion is noted. Atelectasis is seen within the right base. Heart is enlarged. Pacemaker is noted. Pulmonary vessels are slightly congested. Impression: 1. Slightly decreased size of left-sided pleural effusion from prior chest x-ray. 2. Stable cardiomegaly, pulmonary vascular congestion and right-sided pleural effusion is noted. 3. Mild right basilar atelectasis. Diagnostic code #3
--- NOTE | 2019-08-18 17:22 | PCM.PN ---
- General Info Date of Service: 08/18/19 Admission Dx/Problem (Free Text): Admission Diagnosis/Problem Admission Diagnosis/Problem CHF, Congestive heart failure Subjective Update: patient had 3 panic attacks last night in a couple this morning. She seemed to be very concerned about her and this caused her some anxiety. She gets short of breath during these episodes, but otherwise is improving. - Review of Systems General: Reports: Weakness HEENT: Reports: No Symptoms Pulmonary: Reports: Shortness of Breath, Cough Gastrointestinal: Reports: No Symptoms Skin: Reports: No Symptoms Psychiatric: Reports: Anxiety - Patient Data Vitals - Most Recent: Last Vital Signs Temp 98.8 F 08/18/19 11:44 Pulse 70 08/18/19 11:44 Resp 14 08/18/19 11:44 BP 108/87 08/18/19 11:44 Pulse Ox 100 08/18/19 11:44 Weight - Most Recent: 105 lb 11.21 oz I&O - Last 24 Hours: Intake & Output 08/18/19 08/18/19 08/18/19 06:59 14:59 22:59 Intake Total 400 360 600 Output Total 1400 1900 Balance -1000 360 -1300 Lab Results Last 24 Hours: Laboratory Results - last 24 hr 08/18/19 08/18/19 08/18/19 Range/Units 04:51 04:51 04:51 WBC 31.46 H (3.98-10.04) K/mm3 RBC 3.19 L (3.98-5.22) M/mm3 Hgb 8.3 L (11.2-15.7) gm/dl Hct 28.5 L (34.1-44.9) % MCV 89.3 (79.4-94.8) fl MCH 26.0 (25.6-32.2) pg MCHC 29.1 L (32.2-35.5) g/dl RDW Std Deviation 57.8 H (36.4-46.3) fL Plt Count 295 (182-369) K/mm3 MPV 9.9 (9.4-12.3) fl Neut % (Auto) 21.1 L (34.0-71.1) % Lymph % (Auto) 73.4 H (19.3-51.7) % [place] % (Auto) 4.4 L (4.7-12.5) % Eos % (Auto) 0.6 L (0.7-5.8) Baso % (Auto) 0.3 (0.1-1.2) % Neut # (Auto) 6.66 H (1.56-6.13) K/mm3 Lymph # (Auto) 23.09 H (1.18-3.74) K/mm3 [place] # (Auto) 1.38 H (0.24-0.36) K/mm3 Eos # (Auto) 0.18 (0.04-0.36) K/mm3 Baso # (Auto) 0.08 (0.01-0.08) K/mm3 Manual Slide Review Abnormal smear Sodium 139 (136-145) mEq/L Potassium 3.7 (3.5-5.1) mEq/L Chloride 99 (98-107) mEq/L Carbon Dioxide 34 H (21-32) mEq/L Anion Gap 9.7 (5-15) BUN 28 H (7-18) mg/dL Creatinine 0.9 (0.55-1.02) mg/dL Est Cr Clr Drug Dosing 34.80 mL/min Estimated GFR (MDRD) 60 (>60) mL/min BUN/Creatinine Ratio 31.1 H (14-18) Glucose 106 (83-115) mg/dL Calcium 8.4 L (8.5-10.1) mg/dL Magnesium 2.2 (1.8-2.4) mg/dl Total Bilirubin 1.0 (0.2-1.0) mg/dL AST 20 (15-37) U/L ALT 19 (14-59) U/L Alkaline Phosphatase 102 (46-116) U/L NT-Pro-B Natriuret Pep 4459 H (0-450) pg/mL Total Protein 5.8 L (6.4-8.2) g/dl Albumin 3.3 L (3.4-5.0) g/dl Globulin 2.5 gm/dL Albumin/Globulin Ratio 1.3 (1-2) Med Orders - Current: Current Medications Acetaminophen (Tylenol) 650 mg PO Q4H PRN PRN Reason: Pain (Mild 1-3)/fever Last Admin: 08/17/19 23:39 Dose: 650 mg Clopidogrel Bisulfate (Plavix) 75 mg PO DAILY [facility] Last Admin: 08/18/19 08:07 Dose: 75 mg Enoxaparin Sodium (Lovenox) 40 mg SUBCUT DAILY [facility] Last Admin: 08/18/19 08:06 Dose: 40 mg Furosemide (Lasix) 40 mg IVPUSH DAILY [facility] Last Admin: 08/18/19 08:06 Dose: 40 mg Isosorbide Mononitrate (Imdur) 30 mg PO DAILY [facility] Last Admin: 08/18/19 08:07 Dose: 30 mg Magnesium Oxide (Magnesium Oxide) 400 mg PO BID [facility] Last Admin: 08/18/19 08:06 Dose: 400 mg Metoprolol Succinate (Toprol Xl) 25 mg PO BEDTIME [facility] Last Admin: 08/17/19 20:33 Dose: 25 mg Ondansetron HCl (Zofran) 4 mg IV Q4H PRN PRN Reason: Nausea/Vomiting Pantoprazole Sodium (Protonix) 40 mg PO BID [facility] Last Admin: 08/18/19 08:06 Dose: 40 mg Potassium Chloride (Klor-Con M20) 20 meq PO DAILY [facility] Last Admin: 08/18/19 08:07 Dose: 20 meq Rosuvastatin Calcium (Crestor) 10 mg PO DAILY [facility] Last Admin: 08/18/19 08:06 Dose: 10 mg Sodium Chloride (Saline Flush) 10 ml FLUSH ASDIRECTED PRN PRN Reason: Keep Vein Open Last Admin: 08/16/19 08:46 Dose: 10 ml Discontinued Medications Albuterol/Ipratropium (Duoneb 3.0-0.5 Mg/3 Ml) 3 ml NEB ONETIME ONE Stop: 08/16/19 08:17 Last Admin: 08/16/19 08:32 Dose: 3 ml Furosemide (Lasix) 80 mg IVPUSH NOW ONE Stop: 08/16/19 11:01 Last Admin: 08/16/19 11:36 Dose: 80 mg Furosemide (Lasix) 80 mg IVPUSH NOW ONE Stop: 08/16/19 11:04 Last Admin: 08/16/19 11:55 Dose: Not Given Furosemide (Lasix) 40 mg IVPUSH ONETIME ONE Stop: 08/16/19 18:01 Last Admin: 08/16/19 17:01 Dose: 40 mg Furosemide (Lasix) 40 mg IVPUSH ONETIME ONE Stop: 08/17/19 15:01 Last Admin: 08/17/19 15:08 Dose: 40 mg Magnesium Sulfate 2 gm/ Premix 50 mls @ 25 mls/hr IV ONETIME ONE Stop: 08/17/19 13:59 Last Admin: 08/17/19 12:18 Dose: 25 mls/hr Sodium Chloride (Normal Saline) 250 mls @ 50 mls/hr IV ASDIRECTED [facility] Last Admin: 08/17/19 12:32 Dose: 50 mls/hr Iopamidol (Isovue-370 (76%)) 100 ml IVPUSH ONETIME ONE Stop: 08/16/19 09:56 Last Admin: 08/16/19 10:15 Dose: 100 ml Methylprednisolone Sodium Succinate (Solu-Medrol) 125 mg IVPUSH ONETIME ONE Stop: 08/16/19 08:17 Last Admin: 08/16/19 08:46 Dose: 125 mg Metoprolol Succinate (Toprol Xl) 25 mg PO Q24H [facility] Last Admin: 08/17/19 15:50 Dose: Not Given Potassium Chloride (Klor-Con M20) 20 meq PO ONETIME ONE Stop: 08/16/19 21:41 Last Admin: 08/16/19 22:48 Dose: 20 meq Potassium Chloride (Klor-Con M20) 20 meq PO ONETIME ONE Stop: 08/17/19 17:01 Last Admin: 08/17/19 16:43 Dose: 20 meq Sodium Chloride (Saline Flush) 10 ml FLUSH ONETIME ONE Stop: 08/16/19 09:56 Last Admin: 08/16/19 10:15 Dose: 10 ml - Exam Quality Assessment: Supplemental Oxygen General: Alert, Oriented HEENT: Pupils Equal, Pupils Reactive, EOMI, Mucous Membr. Moist/[place] Neck: Supple Lungs: Normal Respiratory Effort, Rales (miminal) Cardiovascular: Regular Rate, Regular Rhythm - Problem List Review Problem List Initiated/Reviewed/Updated: Yes - My Orders Last 24 Hours: My Active Orders 08/17/19 21:00 Magnesium Oxide 400 mg PO BID Metoprolol Succinate [Toprol XL] 25 mg PO BEDTIME 08/18/19 09:18 Notify Provider Consults [RC] ASDIRECTED Consult to Physician [CONS] Routine 08/19/19 05:00 PRO B-TYPE NATRIUR PEPT,BNPPRO [CHEM] DAILY 08/19/19 05:11 CBC WITH AUTO DIFF [HEME] AM COMPREHENSIVE METABOLIC PN,CMP [CHEM] AM MAGNESIUM [CHEM] AM 08/20/19 05:11 CBC WITH AUTO DIFF [HEME] AM COMPREHENSIVE METABOLIC PN,CMP [CHEM] AM MAGNESIUM [CHEM] AM - Plan Plan:: Assessment: * Shortness of breath secondary to 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 * Leukocytosis: WBC 20.2 -->31.5 * Likely secondary to CLL * Repeat CBC in the am to monitor * Normocytic anemia: Hgb 9.4-->8.6-->8.3 * Repeat CBC in the am to monitor Monitor * anxiety Plan: * Activity as tolerated * Heart Healthy diet * Monitor I/Os * GI/DVT prophylaxis * consult Dr. Queen in psychiatry. He recommended citalopram and buspirone. * Recheck CBC, BNP, CMP and Mag in the am * Reconcile home meds * plan discharge in the morning
[2019-08-18] MEDS ORDERED: LORazepam 2 MG/ML SDV IVPUSH ONE ×2 (19:15→20:18)
[2019-08-18] MEDS: busPIRone 5 MG Tab PO SCH (19:53)
[2019-08-18] MEDS: Citalopram 10 MG Tab PO SCH (19:54)
--- NOTE | 2019-08-18 23:20 | CONS ---
CONSULTING PHYSICIAN: Vargas Queen MD DATE OF CONSULTATION: 08/18/2019 Site where the services are provided is [facility] in [place], [place]. Site where the services are provided from our offices in [facility]. Length of service for this 60-minute inpatient telemedicine event is 60 minutes. IDENTIFICATION: The patient is an 84-year-old female, who was admitted onto the inpatient Med/Surg Unit at [facility] on 08/16/2019. She is seen for psychiatric consultation per the request of staff attending, Dr. Goldberg and his treatment team. The patient is interviewed in the presence of her , Du, who does not participate in the interview. CHIEF COMPLAINT: "I was filling up with fluid. Shortness of breath. I just did not feel very strong." HISTORY OF PRESENT ILLNESS: The patient is an 84-year-old female, who reports she has been struggling with "bad heart" and shortness of breath. She states that things have been "building up" for some time to the point where she was feeling so weak and low of energy that she had to come into the hospital. She states that aside from the physical health issues, her mood is generally good, except that she has been having more worries and more anxiety lately. She also states that she is "a very poor sleeper" because of the worries and the anxiety as well as her physical health condition, but she does note "I have a good appetite," and denies that she is depressed, stating "I think that would be going too far" to say that. The patient maintains good interest in activities, it is just that "I have no energy." She denies that she is suicidal or homicidal. She denies any psychotic, delusional, or paranoid symptoms. She denies any illicit substance use or excessive alcohol use complicating the clinical picture. She states if she could get something to help reduce her anxiety and sleep better, she would be feeling better, but she is wanting to "go light" on any medications because she is already taking a lot of medications and she does not want to overdo it in her words from a medication standpoint. MEDICATIONS: At the time of presentation: 1. Nexium. 2. Protonix. 3. Lipitor. 4. Imdur. ALLERGIES: 1. Diatrizoate meglumine. 2. Diatrizoate sodium. PAST MEDICAL HISTORY: CHF. REVIEW OF SYSTEMS: Aside from cardiac, all other major organ systems are negative at this point in time for acute difficulties or complications. FAMILY PSYCHIATRIC AND CD HISTORY: The patient denies. PAST PSYCHIATRIC AND CD HISTORY: The patient denies. SOCIAL HISTORY: The patient was born and raised in [place], [place]. She lives in [place] with her of 63 years. She has 3 children from the marriage, 2 girls and a boy, and the children all live in the [place]. 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 The patient is Holiness in terms of her june formation. She enjoys quilting and bordering in her spare time. MENTAL STATUS EXAM: The patient is an 84-year-old, pleasant, soft-spoken white female, in no apparent distress. Speech is of regular rate and rhythm. The patient is cognitively oriented. Psychomotor activity is within normal limits. There are no abnormal motor movements or tics observed. Gait and station are not observed. This patient is lying in bed during the course of the inpatient consult. Mood is anxious and frustrated. Affect is consistent with stated mood. Cooperative overall for the purposes of the inpatient consult, but somewhat anxious and also a little bit short of breath. There is no behavioral or stated evidence of acute suicidal or homicidal ideation, or acute psychotic, delusional, or paranoid symptoms. Thought processes are significant for ruminations and racing thoughts. There are no acute manic symptoms or loose associations evident. Judgment and insight appear unimpaired at this point in time. Motivation for help is good. VITALS: 108/87, 70, 14, and 98.8 degrees. IMPRESSION: [place] I: 1. Generalized anxiety disorder, F41.1. 2. Depression, not otherwise specified, F32.9. 3. Rule out major depressive disorder. [place] II: None. [place] III: 1. Congestive heart failure. 2. 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 [place] IV: Severe. [place] V: 60. PLAN: 1. Begin trial of BuSpar 7.5 mg b.i.d. for anxiety reduction. 2. Begin trial of Celexa 10 mg at bedtime to help with anxiety, mood, and sleep initiation and maintenance. 3. Pastoral guidance. 4. Other medications as dosed and prescribed by the patient's primary inpatient medical treatment team. 5. We will continue to follow up with the patient on an as-needed basis while the patient remains on the inpatient Med/Surg Unit at [facility] in [place], [place]. 6. We will follow up with the patient sooner if any complications in the interim. 7. The patient is apprised of benefits and side effects of her newly initiated psychiatric medication regimen. She acknowledges her understanding of these facts and has no further questions by the end of the interview session. 8. Crisis plan is in place. [facility][id number]
[2019-08-19] MEDS: Magnesium Oxide 400 MG Tab PO SCH ×2 (03:10→10:06)
[2019-08-19] MEDS: Citalopram 10 MG Tab PO SCH (03:10)
[2019-08-19] MEDS: Pantoprazole 40 MG Tab.CR PO SCH ×2 (03:10→10:00)
[2019-08-19] MEDS: busPIRone 5 MG Tab PO SCH ×2 (03:10→09:50)
[2019-08-19] MEDS: Metoprolol Succinate 25 MG Tab.ER PO SCH (03:10)
[2019-08-19] MEDS: Rosuvastatin 10 MG Tab PO SCH (09:58)
[2019-08-19] MEDS: Clopidogrel 75 MG Tab PO SCH (09:59)
[2019-08-19] MEDS: Potassium Chloride 20 MEQ Tab.ER PO SCH (10:03)
[2019-08-19] MEDS: Furosemide 40 MG/4 ML VIAL IVPUSH SCH (10:03)
[2019-08-19] MEDS: Isosorbide Mononitrate 30 MG Tab.ER PO SCH (10:04)
[2019-08-19] MEDS: Enoxaparin 40 MG/0.4 ML Syringe SUBCUT SCH (10:05)
[2019-08-19] MEDS ORDERED: Potassium Chloride 20 MEQ Tab.ER PO ONE (12:00)
[2019-08-19] MEDS ORDERED: Furosemide 40 MG/4 ML VIAL IVPUSH ONE (14:00)
--- NOTE | 2019-08-19 15:16 | PCM.DCSUM1 ---
Discharge Summary - Hospital Course HPI Initial Comments: Gabby is a 84 year old female with past medical history positive for CHF, severe mitral disease, Atrial fibrillation, anemia and CLL who presented for 2 day history of worsening shortness of breath. The patient at baseline has some shortness of breath when walking approximately 15 feet, but had worsening symptoms beginning . She also noted nausea, malaise, fatigue and a cough. She denies vomiting, diarrhea, constipation, hematochezia or melena, fever, hemoptysis, pedal edema. The patient has recently had some fluctuations in weight,. She was hospitalized in [place] approximately 1 month ago from anemia. During this time, she underwent colonoscopy and EGD, as well as a blood transfusion. Per patient, her colonoscopy was remarkable only for polyps. She was discharged with the understanding that she was going to discontinue her furosemide and her potassium, however the patient began to notice pedal edema and was placed back on furosemide and potassium by her primary care physician, Dr. Yap. She has not noted any pedal edema since she resumed furosemide. She is typically on 3 L of O2 at home. Other medical conditions include GERD, history of IN and Raynaud as well as carotid surgery. She has a history of double mastectomy for fibrocystic changes. While in the ER, the patient underwent chest xray, EKG, CT with angiogram and lab work. She was given Solu-medrol and duoneb. Her EKG demonstrated atrial fibrillation with no acute changes. Her WBC was elevated at 20.2. Her hemoglobin was low at 9.4. D dimer was elevated at 0.68 with normal troponin. Her BNP [place] 7444. CT demonstrated pleural effusions with cardiomegaly and mild pulmonary vascular congestion. The patient was given Lasix and admitted. Previous Echocardiogram done 01/21/19 demonstrates left ventricular ejection fraction of 40% with severe biatrial dilation and moderates residual mitral valve regurgitation with mitraclip present. There is also noted tricuspid regurgitation and mildly elevated pulmonary artery systolic pressure estimated to be 49.7 mmHg. Diagnosis: Stroke: No - Discharge Data Discharge Date: 08/19/19 Discharge Disposition: Home, Self-Care 01 Condition: Good - Referral to Home Health Primary Care Physician: Sarha Yap MD - Patient Summary/Data Consults: Consultations 08/18/19 09:18 Consult to Physician [CONS] Routine 08/18/19 19:04 Consult to Spiritual Care [CONS] Routine Hospital Course: patient recommended and started on IV Lasix. First day she received 80 mg in the morning and 40 mg in the evening. Day 2 she received 80 mg twice a day. On day 3 she was given a trial of just 40 mg IV in the morning, and this was not enough to keep negative fluid loss. On day of discharge she was given 40 mg twice a day. Previously she has been on Lasix 80 mg in the morning and 40 mg in the afternoon. She will be sent home on this dose with the assumption that she will have this monitored by her green building materials designer and primary care provider. Also, she was not placed on an Noé inhibitor or ARB due to relatively low BP. Patient's pleural effusion did move, but there still a moderately large right- sided pleural effusion. This will need to be followed as an outpatient. Patient also had several episodes of panic attack. A psychiatry consult was obtained with Dr. Queen and he recommended citalopram 10 mg a day and BuSpar 7.5 mg twice a day. Because of the increased dose of her furosemide she will need a recheck on her electrolytes in the next few days. - Patient Instructions Diet: Heart Healthy Diet Activity: As Tolerated Driving: Do Not Drive Showering/Bathing: May Shower Other/Special Instructions: Follow up with PCP and green building materials designer. You will need labwork for your electrolytes and Magnesium. I have increased your furosemide significantly, therefore you will need to check weights daily. Also he will need a repeat chest x-ray to follow your pleural effusion. Dr. Queen prescribed citalopram and BuSpar. He will need to follow up with your primary care provider to discuss these medications. - Discharge Plan *PRESCRIPTION DRUG MONITORING PROGRAM REVIEWED*: No *COPY OF PRESCRIPTION DRUG MONITORING REPORT IN PATIENT ARTEMIO: No Prescriptions/Med Rec: busPIRone HCl [Buspirone HCl] 7.5 mg PO BID #60 tablet Citalopram [Citalopram HBr] 10 mg PO DAILY #15 tab Furosemide [Lasix] 80 mg PO QAM #60 tab Furosemide [Lasix] 40 mg PO Q24H #30 tablet Magnesium Oxide 400 mg PO BID #60 tablet Metoprolol Succinate [Toprol XL] 25 mg PO BEDTIME #30 tab.er Potassium Chloride [Klor-Con M20] 20 meq PO BID #60 tab.er Home Medications: Home Meds atorvaSTATin [Lipitor] 40 mg PO DAILY 10/16/15 [History] Cholecalciferol (Vitamin D3) [Vitamin D3] 1,000 unit PO DAILY 01/28/16 [History] Clopidogrel [Plavix] 75 mg PO DAILY 01/30/18 [History] Isosorbide Mononitrate [Imdur] 60 mg PO DAILY #30 tab.er 01/30/18 [Rx] Multivitamin with Minerals [Multiple Vitamin] 1 tab PO DAILY 05/20/19 [History] Esomeprazole Magnesium [Nexium] 20 mg PO DAILY 08/16/19 [History] Vit A/Vit C/Vit E/Zinc/Copper [Icaps Areds Softgel] 1 cap PO DAILY 08/16/19 [ History] Citalopram [Citalopram HBr] 10 mg PO DAILY #15 tab 08/19/19 [Rx] Furosemide [Lasix] 40 mg PO Q24H #30 tablet 08/19/19 [Rx] Furosemide [Lasix] 80 mg PO QAM #60 tab 08/19/19 [Rx] Isosorbide Mononitrate [Imdur] 30 mg PO DAILY tab.er 08/19/19 [Rx] Magnesium Oxide 400 mg PO BID #60 tablet 08/19/19 [Rx] Metoprolol Succinate [Toprol XL] 25 mg PO BEDTIME #30 tab.er 08/19/19 [Rx] Potassium Chloride [Klor-Con M20] 20 meq PO BID #60 tab.er 08/19/19 [Rx] busPIRone HCl [Buspirone HCl] 7.5 mg PO BID #60 tablet 08/19/19 [Rx] Patient Handouts: Heart Failure, [id number], Heart Failure Exacerbation Forms: ED Department Discharge Referrals: Sarah Yap MD [Primary Care Provider] - 08/26/19 2:00 pm (Please follow up with Dr. Yap on Sunday at 200pm. ) - Discharge Summary/Plan Comment DC Time >30 min.: Yes Discharge Summary/Plan Comment: follow-up with green building materials designer and primary care provider. Please get lab work for electrolytes in the next couple of days. see above for details. - General Info Date of Service: 08/19/19 Admission Dx/Problem (Free Text: Admission Diagnosis/Problem Admission Diagnosis/Problem CHF, Congestive heart failure Subjective Update: patient states he she is feeling much better. She has less shortness of breath. Functional Status: Reports: Pain Controlled - Review of Systems General: Reports: No Symptoms HEENT: Reports: No Symptoms Pulmonary: Reports: No Symptoms Cardiovascular: Reports: No Symptoms Gastrointestinal: Reports: No Symptoms - Patient Data Vitals - Most Recent: Last Vital Signs Temp 99.0 F 08/19/19 11:55 Pulse 85 08/19/19 11:55 Resp 24 H 08/19/19 11:55 BP 104/66 08/19/19 11:55 Pulse Ox 99 08/19/19 11:55 Weight - Most Recent: 101 lb 1.6 oz I&O - Last 24 hours: Intake & Output 08/19/19 08/19/19 08/19/19 06:59 14:59 22:59 Intake Total 700 180 Output Total 600 Balance 100 180 Lab Results - Last 24 hrs: Laboratory Results - last 24 hr 08/19/19 08/19/19 08/19/19 Range/Units 05:01 05:01 05:01 WBC 24.10 H (3.98-10.04) K/mm3 RBC 3.16 L (3.98-5.22) M/mm3 Hgb 8.6 L (11.2-15.7) gm/dl Hct 28.2 L (34.1-44.9) % MCV 89.2 (79.4-94.8) fl MCH 27.2 (25.6-32.2) pg MCHC 30.5 L (32.2-35.5) g/dl RDW Std Deviation 56.8 H (36.4-46.3) fL Plt Count 273 (182-369) K/mm3 MPV 10.1 (9.4-12.3) fl Neut % (Auto) 19.2 L (34.0-71.1) % Lymph % (Auto) 76.2 H (19.3-51.7) % [place] % (Auto) 3.6 L (4.7-12.5) % Eos % (Auto) 0.8 (0.7-5.8) Baso % (Auto) 0.2 (0.1-1.2) % Neut # (Auto) 4.60 (1.56-6.13) K/mm3 Lymph # (Auto) 18.37 H (1.18-3.74) K/mm3 [place] # (Auto) 0.87 H (0.24-0.36) K/mm3 Eos # (Auto) 0.20 (0.04-0.36) K/mm3 Baso # (Auto) 0.06 (0.01-0.08) K/mm3 Manual Slide Review Abnormal smear Sodium 141 (136-145) mEq/L Potassium 3.4 L (3.5-5.1) mEq/L Chloride 102 (98-107) mEq/L Carbon Dioxide 36 H (21-32) mEq/L Anion Gap 6.4 (5-15) BUN 23 H (7-18) mg/dL Creatinine 0.7 (0.55-1.02) mg/dL Est Cr Clr Drug Dosing 44.08 mL/min Estimated GFR (MDRD) > 60 (>60) mL/min BUN/Creatinine Ratio 32.9 H (14-18) Glucose 106 (83-115) mg/dL Calcium 8.7 (8.5-10.1) mg/dL Magnesium 2.2 (1.8-2.4) mg/dl Total Bilirubin 0.9 (0.2-1.0) mg/dL AST 19 (15-37) U/L ALT 18 (14-59) U/L Alkaline Phosphatase 105 (46-116) U/L NT-Pro-B Natriuret Pep 5126 H (0-450) pg/mL Total Protein 5.8 L (6.4-8.2) g/dl Albumin 3.2 L (3.4-5.0) g/dl Globulin 2.6 gm/dL Albumin/Globulin Ratio 1.2 (1-2) Med Orders - Current: Current Medications Acetaminophen (Tylenol) 650 mg PO Q4H PRN PRN Reason: Pain (Mild 1-3)/fever Last Admin: 08/17/19 23:39 Dose: 650 mg Buspirone HCl (Buspar) 7.5 mg PO BID [facility] Last Admin: 08/19/19 09:50 Dose: 7.5 mg Citalopram Hydrobromide (Celexa) 10 mg PO BEDTIME [facility] Last Admin: 08/19/19 03:10 Dose: Not Given Clopidogrel Bisulfate (Plavix) 75 mg PO DAILY [facility] Last Admin: 08/19/19 09:59 Dose: 75 mg Enoxaparin Sodium (Lovenox) 40 mg SUBCUT DAILY [facility] Last Admin: 08/19/19 10:05 Dose: 40 mg Furosemide (Lasix) 40 mg IVPUSH DAILY [facility] Last Admin: 08/19/19 10:03 Dose: 40 mg Isosorbide Mononitrate (Imdur) 30 mg PO DAILY [facility] Last Admin: 08/19/19 10:04 Dose: 30 mg Magnesium Oxide (Magnesium Oxide) 400 mg PO BID [facility] Last Admin: 08/19/19 10:06 Dose: 400 mg Metoprolol Succinate (Toprol Xl) 25 mg PO BEDTIME [facility] Last Admin: 08/19/19 03:10 Dose: Not Given Ondansetron HCl (Zofran) 4 mg IV Q4H PRN PRN Reason: Nausea/Vomiting Pantoprazole Sodium (Protonix) 40 mg PO BID [facility] Last Admin: 08/19/19 10:00 Dose: 40 mg Potassium Chloride (Klor-Con M20) 20 meq PO DAILY [facility] Last Admin: 08/19/19 10:03 Dose: 20 meq Rosuvastatin Calcium (Crestor) 10 mg PO DAILY [facility] Last Admin: 08/19/19 09:58 Dose: 10 mg Sodium Chloride (Saline Flush) 10 ml FLUSH ASDIRECTED PRN PRN Reason: Keep Vein Open Last Admin: 08/16/19 08:46 Dose: 10 ml Discontinued Medications Albuterol/Ipratropium (Duoneb 3.0-0.5 Mg/3 Ml) 3 ml NEB ONETIME ONE Stop: 08/16/19 08:17 Last Admin: 08/16/19 08:32 Dose: 3 ml Furosemide (Lasix) 80 mg IVPUSH NOW ONE Stop: 08/16/19 11:01 Last Admin: 08/16/19 11:36 Dose: 80 mg Furosemide (Lasix) 80 mg IVPUSH NOW ONE Stop: 08/16/19 11:04 Last Admin: 08/16/19 11:55 Dose: Not Given Furosemide (Lasix) 40 mg IVPUSH ONETIME ONE Stop: 08/16/19 18:01 Last Admin: 08/16/19 17:01 Dose: 40 mg Furosemide (Lasix) 40 mg IVPUSH ONETIME ONE Stop: 08/17/19 15:01 Last Admin: 08/17/19 15:08 Dose: 40 mg Furosemide (Lasix) 40 mg IVPUSH ONETIME ONE Stop: 08/19/19 14:01 Last Admin: 08/19/19 13:39 Dose: 40 mg Magnesium Sulfate 2 gm/ Premix 50 mls @ 25 mls/hr IV ONETIME ONE Stop: 08/17/19 13:59 Last Admin: 08/17/19 12:18 Dose: 25 mls/hr Sodium Chloride (Normal Saline) 250 mls @ 50 mls/hr IV ASDIRECTED KATHERINE Last Admin: 08/17/19 12:32 Dose: 50 mls/hr Influenza Virus Vaccine (Fluzone High-Dose 2019-20 Syringe) 180 mcg IM .ONCE ONE Stop: 08/19/19 14:01 Last Admin: 08/19/19 13:36 Dose: 180 mcg Iopamidol (Isovue-370 (76%)) 100 ml IVPUSH ONETIME ONE Stop: 08/16/19 09:56 Last Admin: 08/16/19 10:15 Dose: 100 ml Methylprednisolone Sodium Succinate (Solu-Medrol) 125 mg IVPUSH ONETIME ONE Stop: 08/16/19 08:17 Last Admin: 08/16/19 08:46 Dose: 125 mg Metoprolol Succinate (Toprol Xl) 25 mg PO Q24H [facility] Last Admin: 08/17/19 15:50 Dose: Not Given Potassium Chloride (Klor-Con M20) 20 meq PO ONETIME ONE Stop: 08/16/19 21:41 Last Admin: 08/16/19 22:48 Dose: 20 meq Potassium Chloride (Klor-Con M20) 20 meq PO ONETIME ONE Stop: 08/17/19 17:01 Last Admin: 08/17/19 16:43 Dose: 20 meq Potassium Chloride (Klor-Con M20) 40 meq PO ONETIME ONE Stop: 08/19/19 12:01 Last Admin: 08/19/19 12:36 Dose: 40 meq Sodium Chloride (Saline Flush) 10 ml FLUSH ONETIME ONE Stop: 08/16/19 09:56 Last Admin: 08/16/19 10:15 Dose: 10 ml - Exam Quality Assessment: Reports: Supplemental Oxygen General: Reports: Alert, Oriented HEENT: Reports: Pupils Equal, Pupils Reactive, EOMI, Mucous Membr. Moist/[place] Neck: Reports: Supple Lungs: Reports: Normal Respiratory Effort, Rales (rales by basilar worse on the right than the left.) Cardiovascular: Reports: Regular Rate, Regular Rhythm GI/Abdominal Exam: Normal Bowel Sounds, Soft, Non-Tender, No Organomegaly, No Distention, No Abnormal Bruit, No Mass, Pelvis Stable Skin: Reports: Warm, Dry, Intact
[2019-08-19 16:05] VITALS: BP 102/69; PULSE 83
== END 2019-08-19 17:07 | disposition home or self-care (01) | DRG 293 ==
LOC: JD.ED 08:03 → JD.MS 11:38
PROVIDERS: ADMIT Family Medicine; ATTEND Family Medicine
DX: I11.0 Hypertensive heart disease with heart failure (principal); R09.02 Hypoxemia; J44.9 Chronic obstructive pulmonary disease, unspecified; C91.90 Lymphoid leukemia, unspecified not having achieved remission; R06.02 Shortness of breath; R05 Cough; I10 Essential (primary) hypertension; I50.23 Acute on chronic systolic (congestive) heart failure; I73.00 Raynaud's syndrome without gangrene; I48.91 Unspecified atrial fibrillation; Z99.81 Dependence on supplemental oxygen; D64.9 Anemia, unspecified; K21.9 Gastro-esophageal reflux disease without esophagitis; I65.8 Occlusion and stenosis of other precerebral arteries; I08.1 Rheumatic disorders of both mitral and tricuspid valves; F41.0 Panic disorder [episodic paroxysmal anxiety]; H54.7 Unspecified visual loss; M19.90 Unspecified osteoarthritis, unspecified site; E55.9 Vitamin D deficiency, unspecified; D72.829 Elevated white blood cell count, unspecified; F41.1 Generalized anxiety disorder; F32.9 Major depressive disorder, single episode, unspecified; Z86.73 Personal history of transient ischemic attack (TIA), and cerebral infarction without residual deficits; Z85.6 Personal history of leukemia; I25.2 Old myocardial infarction; Z79.899 Other long term (current) drug therapy; Z88.8 Allergy status to other drugs, medicaments and biological substances; Z95.5 Presence of coronary angioplasty implant and graft; Z95.0 Presence of cardiac pacemaker; Z90.49 Acquired absence of other specified parts of digestive tract; Z90.710 Acquired absence of both cervix and uterus; Z87.891 Personal history of nicotine dependence; Z90.10 Acquired absence of unspecified breast and nipple; Z23 Encounter for immunization
CPT/HCPCS: 36415; 71045; 71275; 80053; 83880; 84484; 85025; 85379; 93005; 94640; 96374; 96375; 99285; J1940; J2930; Q9967; 83735; 90471; 90662; 93010; 94761; 99284; A9270-GY; J1650; J3475; J7050; J7620-GY; Q3014